=== PATIENT | male | born 1970 | race American Indian/Alaskan Native ===

== ENCOUNTER 2017-01-30 07:15 | Inpatient (IN) | payer OTHER ==
--- NOTE | 2017-01-30 08:04 | Emergency Department Report ---
ED General Adult HPI - General Chief complaint: Dyspnea/Respdistress Stated complaint: SOB Time Seen by Provider: 01/30/17 08:01 Source: patient Mode of arrival: Ambulatory Limitations: No Limitations - History of Present Illness Initial comments: The patient reports going to [place] for evaluation of his dyspnea prior. He states that he was told about the Inspire device for sleep apnea. He is not currently on home C Pap. He states he wakes up multiple times at night. He is here for evaluation of shortness of breath which she states is exertional, paroxysmal at night and associated with orthopnea. Over the last day he has noted some swelling in his legs. He was also told by Nitin that his blood pressure was elevated. However, he is not yet on antihypertensive medication. -: Gradual, days(s) (leg edema days other symptoms longer in duration), week(s) , month(s) Consistency: intermittent Improves with: none Worsens with: none Associated Symptoms: cough (sometimes white states sometimes brown), shortness of breath. denies: chest pain - Related Data Home Medications Medication Instructions Recorded Confirmed Last Taken No Known Home Medications [No 01/30/17 01/30/17 Unknown Reported Home Medications] Allergies Allergy/AdvReac Type Severity Reaction Status Date / Time No Known Allergies Allergy Unverified 03/12/14 11:53 ED Review of Systems ROS: Stated complaint: SOB Other details as noted in HPI Constitutional: denies: chills, fever Eyes: denies: eye pain, eye discharge, vision change ENT: denies: ear pain, throat pain Respiratory: see HPI, cough, orthopnea, shortness of breath, SOB with exertion. denies: wheezing Cardiovascular: denies: chest pain, palpitations Endocrine: no symptoms reported Gastrointestinal: denies: abdominal pain, nausea, diarrhea Genitourinary: denies: urgency, dysuria Musculoskeletal: denies: back pain, joint swelling, arthralgia Skin: denies: rash, lesions Neurological: denies: headache, weakness, paresthesias Psychiatric: denies: anxiety, depression Hematological/Lymphatic: denies: easy bleeding, easy bruising ED Past Medical Hx - Past Medical History Previous Medical History?: No - Surgical History Past Surgical History?: No - Social History Smoking Status: Never Smoker Substance Use Type: None - Medications Home Medications: Home Medications Medication Instructions Recorded Confirmed Last Taken Type No Known Home Medications [No 01/30/17 01/30/17 Unknown History Reported Home Medications] ED Physical Exam - General Limitations: No Limitations General appearance: alert, in no apparent distress, obese - Head Head exam: Present: atraumatic, normocephalic, other (large posterior neck/Dalrin- occipital adipose collection) - Eye Eye exam: Present: normal appearance, PERRL, EOMI. Absent: scleral icterus - ENT ENT exam: Present: mucous membranes moist - Neck Neck exam: Present: normal inspection - Respiratory Respiratory exam: Present: normal lung sounds bilaterally. Absent: respiratory distress - Cardiovascular Cardiovascular Exam: Present: regular rate, normal rhythm. Absent: systolic murmur, diastolic murmur, rubs, gallop - GI/Abdominal GI/Abdominal exam: Present: soft, normal bowel sounds. Absent: distended, tenderness, guarding, rebound, rigid - Rectal Rectal exam: Present: deferred - Extremities Exam Extremities exam: Present: other (1+ pretibial edema). Absent: pedal edema, joint swelling, calf tenderness - Back Exam Back exam: Present: normal inspection - Neurological Exam Neurological exam: Present: alert, oriented X3, CN II-XII intact. Absent: motor sensory deficit - Psychiatric Psychiatric exam: Present: normal affect, normal mood - Skin Skin exam: Present: warm, dry, intact, normal color. Absent: rash ED Course Vital Signs 01/30/17 01/30/17 01/30/17 07:39 07:55 08:00 Temperature 99.1 F Pulse Rate 78 Respiratory 24 Rate Blood Pressure 162/99 176/102 167/92 O2 Sat by Pulse 91 93 86 Oximetry 01/30/17 01/30/17 01/30/17 08:11 08:21 08:31 Temperature Pulse Rate 78 Respiratory 14 Rate Blood Pressure 167/92 167/92 167/92 O2 Sat by Pulse 93 99 98 Oximetry 01/30/17 01/30/17 01/30/17 08:41 08:51 09:01 Temperature Pulse Rate 78 68 73 Respiratory 14 14 17 Rate Blood Pressure 167/92 167/92 159/97 O2 Sat by Pulse 97 97 97 Oximetry 01/30/17 09:07 Temperature Pulse Rate 73 Respiratory Rate Blood Pressure 176/102 O2 Sat by Pulse Oximetry - Reevaluation(s) Reevaluation #1: The patient became somnolent in the emergency department intermittently. Therefore we placed him on BiPAP. He was admitted by Dr. Vuong to the hospitalist service. 01/30/17 09:34 ED Medical Decision Making - Lab Data Result diagrams: 01/30/17 07:52 01/30/17 07:52 Laboratory Results - last 24 hr 01/30/17 01/30/17 01/30/17 07:52 07:52 07:52 WBC 8.5 RBC 4.38 Hgb 12.1 Hct 37.7 MCV 86 MCH 28 MCHC 32 RDW 17.5 H Plt Count 127 L Lymph % (Auto) 28.6 [place] % (Auto) 12.0 H Eos % (Auto) 1.9 Baso % (Auto) 0.4 Lymph # 2.4 [place] # 1.0 H Eos # 0.2 Baso # 0.0 Seg Neutrophils % 57.1 Seg Neutrophils # 4.8 PT INR APTT POC ABG pH POC ABG pCO2 POC ABG pO2 POC ABG HCO3 POC ABG Total CO2 POC ABG O2 Sat POC ABG Base Excess FiO2 Sodium 139 Potassium 4.3 Chloride 97.0 L Carbon Dioxide 30 Anion Gap 16 BUN 11 Creatinine 1.2 Estimated GFR > 60 BUN/Creatinine Ratio 9.16 Glucose 174 H Calcium 9.2 CK-MB (CK-2) 14.6 H Troponin T < 0.010 NT-Pro-B Natriuret Pep 23.29 01/30/17 01/30/17 08:13 08:20 WBC RBC Hgb Hct MCV MCH MCHC RDW Plt Count Lymph % (Auto) [place] % (Auto) Eos % (Auto) Baso % (Auto) Lymph # [place] # Eos # Baso # Seg Neutrophils % Seg Neutrophils # PT 13.6 INR 1.05 APTT 35.4 POC ABG pH 7.397 POC ABG pCO2 56.8 H POC ABG pO2 63 L POC ABG HCO3 35.0 POC ABG Total CO2 37 POC ABG O2 Sat 91 POC ABG Base Excess 10 FiO2 21 Sodium Potassium Chloride Carbon Dioxide Anion Gap BUN Creatinine Estimated GFR BUN/Creatinine Ratio Glucose Calcium CK-MB (CK-2) Troponin T NT-Pro-B Natriuret Pep - EKG Data -: EKG Interpreted by Tx EKG shows normal: sinus rhythm (first-degree AV block) Rate: normal - EKG Data Interpretation: no acute changes - Radiology Data interpreted by me: Chest x-ray no acute process Critical Care Time: Yes Critical care time in (mins) excluding proc time.: 40 Critical care attestation.: If time is entered above; I have spent that time in minutes in the direct care of this critically ill patient, excluding procedure time. ED Disposition Clinical Impression: Obstructive sleep apnea, Hypercapnia, First degree AV block Hypertension Qualifiers: Hypertension type: essential hypertension Qualified Code(s): I10 - Essential ( primary) hypertension Type 2 diabetes mellitus Qualifiers: Diabetes mellitus complication status: without complication Diabetes mellitus senior living insulin use: without senior living use Qualified Code(s): E11.9 - Type 2 diabetes mellitus without complications Hypercapnic respiratory failure Qualifiers: Chronicity: chronic Qualified Code(s): J96.12 - Chronic respiratory failure with hypercapnia Disposition: OP ADMITTED IP TO THIS HOSP Is pt being admited?: Yes Does the pt Need Aspirin: Yes Condition: Stable Instructions: Diabetes Mellitus Type 2 in Adults (ED), Hypertension (ED) Referrals: PRIMARY CARE, [Primary Care Provider] - 3-5 Days Time of Disposition: 09:35
[2017-01-30 08:19] LABS: Basophils % (Auto) 0.4 % (0.0-1.8); Eosinophils % (Auto) 1.9 % (0.0-4.3); Hematocrit 37.7 % (35.5-45.6); Hemoglobin 12.1 gm/dl (11.8-15.2); Mean Corpuscular HGB Conc 32 % (32-34); Mean Corpuscular Hemoglobin 28 pg (28-32); Mean Corpuscular Volume 86 fl (84-94); Platelet Count 127 K/mm3 (140-440); Red Blood Count 4.38 M/mm3 (3.65-5.03); Red Cell Distribution Width 17.5 % (13.2-15.2); White Blood Count 8.5 K/mm3 (4.5-11.0)
[2017-01-30 08:22] LABS: Anion Gap 16 mmol/L; BUN/Creatinine Ratio 9.16; Blood Urea Nitrogen 11 mg/dL (9-20); Calcium 9.2 mg/dL (8.4-10.2); Carbon Dioxide 30 mmol/L (22-30); Glucose 174 mg/dL (75-100); Potassium 4.3 mmol/L (3.6-5.0); Sodium 139 mmol/L (137-145)
[2017-01-30 08:32] LABS: ISTAT Base Excess 10; ISTAT DEVICE 0; ISTAT PCO2 56.8 (35-45); ISTAT PH 7.397 (7.35-7.45); ISTAT PO2 63 (80-105); ISTAT SO2 91; ISTAT TCO2 37
[2017-01-30 08:37] LABS: INR 1.05 (0.87-1.13)
[2017-01-30 08:38] LABS: Partial Thromboplastin Time 35.4 Sec. (24.2-36.6)
[2017-01-30] MEDS ORDERED: NITRO-BID 2% TP ONE (08:39)
[2017-01-30 08:44] LABS: Creatine Kinase MB 14.6 ng/mL (0.0-4.0)
[2017-01-30 08:46] LABS: Alanine Aminotransferase 62 units/L (7-56); Albumin 4.1 g/dL (3.9-5); Albumin/Globulin Ratio 0.9 %; Alkaline Phosphatase 90 units/L (35-129); Bilirubin,Total 0.3 mg/dL (0.1-1.2); Magnesium 2.1 mg/dL (1.7-2.3); Total Protein 8.8 g/dL (6.3-8.2)
[2017-01-30 08:47] LABS: Bilirubin,Direct < 0.2 mg/dL (0-0.2)
[2017-01-30 08:59] LABS: Creatine Kinase 3072 units/L (55-170)
[2017-01-30] MEDS ORDERED: NACL 0.9% 1000 ML 1,000 ML IV ONE ×2 (09:20→16:31)
--- NOTE | 2017-01-30 09:32 | XRay Report ---
AP CHEST :01/30/17 07:15:00 CLINICAL: Shortness of breath. COMPARISON:03/29/11 FINDINGS: Borderline cardiomegaly and mild central vascular congestion. No airspace disease or pleural effusion. No tubes or lines. The bones and soft tissues are normal. IMPRESSION: Cardiomegaly and pulmonary venous hypertension. No pulmonary edema.
[2017-01-30] MEDS ORDERED: BABY ASPIRIN PO ONE (09:35)
[2017-01-30 09:46] LABS: Urine Drugs of Abuse Note Disclamer
[2017-01-30] MEDS ORDERED: LOVENOX SUB-Q SCH (10:00)
[2017-01-30 10:07] LABS: Bilirubin,Urine NEG (Negative); Blood,Urine NEG (Negative); Ketones,Urine NEG (Negative); Leukocyte Esterase,Urine NEG (Negative); Mucus,Urine FEW /HPF; Nitrite,Urine NEG (Negative); Urobilinogen,Urine < 2.0 mg/dL (<2.0)
[2017-01-30 10:40] LABS: ISTAT Base Excess 10; ISTAT HCO3 34.9; ISTAT PCO2 59.7 (35-45); ISTAT PH 7.375 (7.35-7.45); ISTAT PO2 67 (80-105); ISTAT SO2 92; ISTAT TCO2 37
--- NOTE | 2017-01-30 11:42 | Admit Criteria Form ---
Admission Criteria Documentation: RESPIRATORY FAILURE GRG Clinical Indications for Admission to Inpatient Care (Place 'X' for any and all applicable criteria): Hospital admission is needed for appropriate care of the patient because of acute respiratory failure or insufficiency as indicated by ANY ONE of the following(1)(2)(3)(4)(5)(6)(7)(8): [ X]I. Mechanical ventilation needed (acute invasive or noninvasive) [ ]II. Severe ventilation deficit as indicated by ANY ONE of the following (9) [ ]a) Respiratory acidosis (pH less than 7.32 and partial pressure of carbon dioxide greater than 40 mm Hg (5.3 kPa)) [ ]b) Partial pressure of carbon dioxide greater than 44 mm Hg (5.9 kPa ) (new) [ ]c) Airflow measurements less than 25% of predicted (eg, peak expiratory flow rate less than 100 L/minute) [ ]d) Forced vital capacity less than 15 mL/kg of ideal body weight, or 50% decrease in vital capacity from baseline [ ]III. Noncardiac pulmonary edema not resolving with rapid emergency treatment (8) [ ]IV. Severe respiratory distress as indicated by ANY ONE of the following: [ ]a) Severe tachypnea (respiratory rate greater than 30, greater than 45 for 6-month-old, greater than 60 for ) [ ]b) Severe hypoxemia (partial pressure of oxygen less than 50 mm Hg ( 6.7 kPa) on greater than 50% oxygen or partial pressure of oxygen to FIO2 ratio less than 200) [ ]c) Mental status deterioration from respiratory disease [ ]V. Airway obstruction or inadequate protection [A](10)(11) The original [employer] content created by [employer] has been revised. The portions of the content which have been revised are identified through the use of italic text or in bold, and [employer] has neither reviewed nor approved the modified material. All other unmodified content is copyright [employer]. Please see references footnoted in the original [employer] edition 2016 Admission Criteria Met: Yes
[2017-01-30] MEDS ORDERED: LOVENOX SUB-Q ONE (12:33)
[2017-01-30] MEDS: LOVENOX SUB-Q SCH (12:44)
[2017-01-30] MEDS ORDERED: DUONEB 0.5 MG-3 MG/3 ML SOLN IH PRN (14:20)
[2017-01-30] MEDS ORDERED: DILAUDID IV PRN (14:25)
[2017-01-30] MEDS ORDERED: ZOFRAN IV PRN (14:25)
--- NOTE | 2017-01-30 14:26 | History and Physical Report ---
History of Present Illness Date of examination: 01/30/17 Date of admission: 01/30/17 09:36 Chief complaint: Sob and frequent sleeping spells. History of present illness: Falling asleep frequently.Has to stop his car freqently to take naps and then drive. The patient reports going to [place] for evaluation of his dyspnea before. He is not currently on home C Pap. He states he wakes up multiple times at night. He is here for evaluation of shortness of breath which she states is exertional, paroxysmal at night and associated with orthopnea. Over the last day he has noted some swelling in his legs. He was also told by Nitin that his blood pressure was elevated. However, he is not yet on antihypertensive medication. Morbidly obese. -: Gradual, days(s) (leg edema days other symptoms longer in duration), week(s) , month(s) Consistency: intermittent Improves with: none Worsens with: none Associated Symptoms: cough (sometimes white states sometimes brown), shortness of breath. denies: chest pain Past History Past Medical History: hypertension, other (Morbidly Obese) Past Surgical History: No surgical history Social history: lives with family, full code Family history: hypertension Medications and Allergies Allergies Allergy/AdvReac Type Severity Reaction Status Date / Time No Known Allergies Allergy Unverified 03/12/14 11:53 Home Medications Medication Instructions Recorded Confirmed Last Taken Type No Known Home Medications [No 01/30/17 01/30/17 Unknown History Reported Home Medications] Active Meds: Active Medications Enoxaparin Sodium (Lovenox) 40 mg SUB-Q QDAY@1000 JO ANN Last Admin: 01/30/17 12:44 Dose: 40 mg Review of Systems All systems: negative Constitutional: no weight loss, no weight gain Ears, nose, mouth and throat: no ear pain, no ear discharge, no tinnitis, no decreased hearing, no nose pain, no nasal congestion, no nasal discharge, no sinus pressure, no sinus pain Cardiovascular: orthopnea, shortness of breath, dyspnea on exertion, high blood pressure, no chest pain Respiratory: shortness of breath, dyspnea on exertion, no cough, no cough with sputum, no excessive sputum, no hemoptysis, no congestion, no wheezing, no pleurisy, no pain, no pain on inspiration, no snoring Gastrointestinal: no nausea, no vomiting, no diarrhea, no constipation, no change in bowel habits, no hematemesis, no coffee ground emesis Genitourinary Male: no hematuria, no flank pain, no discharge, no urinary frequency, no urinary hesitancy, no nocturia, no incontinence, no erectile dysfunction, no genital pain Musculoskeletal: no neck stiffness, no neck pain, no shooting arm pain, no arm numbness/tingling, no low back pain, no shooting leg pain, no leg numbness/ tingling, no redness of joints Integumentary: no rash, no pruritis, no redness, no sores, no wounds, no jaundice, no boils, no blisters Neurological: no head injury, no transient paralysis, no paralysis, no weakness , no parathesias, no numbness, no tingling, no seizures, no syncope, no tremors , no ataxia, no lack of coordination Psychiatric: no anxiety, no depression Endocrine: no cold intolerance, no heat intolerance, no polyphagia, no excessive thirst, no polydipsia, no polyuria, no nocturia, no excessive sweating , no flushing, no weight change Hematologic/Lymphatic: no easy bruising, no easy bleeding Allergic/Immunologic: no urticaria, no allergic rhinitis, no wheezing Exam - Physical Exam Narrative exam: Morbidly obese - Constitutional Vitals: Temp Pulse Resp BP Pulse Ox 98.6 F 83 79 H 152/99 97 01/30/17 13:42 01/30/17 12:51 01/30/17 13:42 01/30/17 13:42 01/30/17 13:58 General appearance: Present: mild distress, well-nourished - EENT Eyes: Present: PERRL ENT: hearing intact, clear oral mucosa - Neck Neck: Present: supple, normal ROM - Respiratory Respiratory effort: normal Respiratory: bilateral: diminished, wheezing - Cardiovascular Heart rate: 70 Rhythm: regular Heart Sounds: Present: S1 & S2. Absent: rub, click - Extremities Extremities: pulses symmetrical, No edema Extremity abnormal: edema Peripheral Pulses: within normal limits - Abdominal General gastrointestinal: Present: soft, non-tender, non-distended, normal bowel sounds Male genitourinary: Present: normal - Integumentary Integumentary: Present: clear, warm, dry - Musculoskeletal Musculoskeletal: gait normal, strength equal bilaterally - Psychiatric Psychiatric: appropriate mood/affect, intact judgment & insight - Neurologic Neurologic: CNII-XII intact, moves all extremities - Allied Health Allied health notes reviewed: nursing, case management Results - Labs CBC & Chem 7: 01/30/17 07:52 01/30/17 07:52 Labs: Laboratory Last Values WBC 8.5 K/mm3 (4.5-11.0) 01/30/17 07:52 RBC 4.38 M/mm3 (3.65-5.03) 01/30/17 07:52 Hgb 12.1 gm/dl (11.8-15.2) 01/30/17 07:52 Hct 37.7 % (35.5-45.6) 01/30/17 07:52 MCV 86 fl (84-94) 01/30/17 07:52 MCH 28 pg (28-32) 01/30/17 07:52 MCHC 32 % (32-34) 01/30/17 07:52 RDW 17.5 % (13.2-15.2) H 01/30/17 07:52 Plt Count 127 K/mm3 (140-440) L 01/30/17 07:52 Lymph % (Auto) 28.6 % (13.4-35.0) 01/30/17 07:52 [place] % (Auto) 12.0 % (0.0-7.3) H 01/30/17 07:52 Eos % (Auto) 1.9 % (0.0-4.3) 01/30/17 07:52 Baso % (Auto) 0.4 % (0.0-1.8) 01/30/17 07:52 Lymph # 2.4 K/mm3 (1.2-5.4) 01/30/17 07:52 [place] # 1.0 K/mm3 (0.0-0.8) H 01/30/17 07:52 Eos # 0.2 K/mm3 (0.0-0.4) 01/30/17 07:52 Baso # 0.0 K/mm3 (0.0-0.1) 01/30/17 07:52 Seg Neutrophils % 57.1 % (40.0-70.0) 01/30/17 07:52 Seg Neutrophils # 4.8 K/mm3 (1.8-7.7) 01/30/17 07:52 PT 13.6 Sec. (12.2-14.9) 01/30/17 08:13 INR 1.05 (0.87-1.13) 01/30/17 08:13 APTT 35.4 Sec. (24.2-36.6) 01/30/17 08:13 POC ABG pH 7.375 (7.35-7.45) 01/30/17 10:33 POC ABG pCO2 59.7 (35-45) H 01/30/17 10:33 POC ABG pO2 67 (80-105) L 01/30/17 10:33 POC ABG HCO3 34.9 01/30/17 10:33 POC ABG Total CO2 37 01/30/17 10:33 POC ABG O2 Sat 92 01/30/17 10:33 POC ABG Base Excess 10 01/30/17 10:33 FiO2 24 % 01/30/17 10:33 Sodium 139 mmol/L (137-145) 01/30/17 07:52 Potassium 4.3 mmol/L (3.6-5.0) 01/30/17 07:52 Chloride 97.0 mmol/L (98-107) L 01/30/17 07:52 Carbon Dioxide 30 mmol/L (22-30) 01/30/17 07:52 Anion Gap 16 mmol/L 01/30/17 07:52 BUN 11 mg/dL (9-20) 01/30/17 07:52 Creatinine 1.2 mg/dL (0.8-1.5) 01/30/17 07:52 Estimated GFR > 60 ml/min 01/30/17 07:52 BUN/Creatinine Ratio 9.16 % 01/30/17 07:52 Glucose 174 mg/dL (75-100) H 01/30/17 07:52 Calcium 9.2 mg/dL (8.4-10.2) 01/30/17 07:52 Magnesium 2.1 mg/dL (1.7-2.3) 01/30/17 07:52 Total Bilirubin 0.3 mg/dL (0.1-1.2) 01/30/17 07:52 Direct Bilirubin < 0.2 mg/dL (0-0.2) 01/30/17 07:52 AST 105 units/L (5-40) H 01/30/17 07:52 ALT 62 units/L (7-56) H 01/30/17 07:52 Alkaline Phosphatase 90 units/L (35-129) 01/30/17 07:52 Total Creatine Kinase 3072 units/L (55-170) H 01/30/17 07:52 CK-MB (CK-2) 14.6 ng/mL (0.0-4.0) H 01/30/17 07:52 CK-MB (CK-2) Rel Index 0.4 (0-4) 01/30/17 07:52 Troponin T < 0.010 ng/mL (0.00-0.029) 01/30/17 07:52 NT-Pro-B Natriuret Pep 23.29 pg/mL (0-450) 01/30/17 07:52 Total Protein 8.8 g/dL (6.3-8.2) H 01/30/17 07:52 Albumin 4.1 g/dL (3.9-5) 01/30/17 07:52 Albumin/Globulin Ratio 0.9 % 01/30/17 07:52 Urine Color Yellow (Yellow) 01/30/17 09:35 Urine Turbidity Clear (Clear) 01/30/17 09:35 Urine pH 6.0 (5.0-7.0) 01/30/17 09:35 Ur Specific [place] 1.017 (1.003-1.030) 01/30/17 09:35 Urine Protein 100 mg/dl mg/dL (Negative) 01/30/17 09:35 Urine Glucose (UA) Neg mg/dL (Negative) 01/30/17 09:35 Urine Ketones Neg mg/dL (Negative) 01/30/17 09:35 Urine Blood Neg (Negative) 01/30/17 09:35 Urine Nitrite Neg (Negative) 01/30/17 09:35 Urine Bilirubin Neg (Negative) 01/30/17 09:35 Urine Urobilinogen < 2.0 mg/dL (<2.0) 01/30/17 09:35 Ur Leukocyte Esterase Neg (Negative) 01/30/17 09:35 Urine WBC (Auto) 1.0 /HPF (0.0-6.0) 01/30/17 09:35 Urine RBC (Auto) 3.0 /HPF (0.0-6.0) 01/30/17 09:35 Urine Mucus Few /HPF 01/30/17 09:35 Urine Opiates Screen Presumptive negative 01/30/17 09:35 Urine Methadone Screen Presumptive negative 01/30/17 09:35 Ur Barbiturates Screen Presumptive negative 01/30/17 09:35 Ur Phencyclidine Scrn Presumptive negative 01/30/17 09:35 Ur Amphetamines Screen Presumptive negative 01/30/17 09:35 U Benzodiazepines Scrn Presumptive negative 01/30/17 09:35 Urine Cocaine Screen Presumptive negative 01/30/17 09:35 U Marijuana (THC) Screen Presumptive negative 01/30/17 09:35 Drugs of Abuse Note Disclamer 01/30/17 09:35 - Imaging and Cardiology EKG: report reviewed Chest x-ray: report reviewed Assessment and Plan Advance Directives: Yes (Full code) VTE prophylaxis?: Chemical Plan of care discussed with patient/family: Yes - Patient Problems (1) Hypercapnic respiratory failure Current Visit: Yes Status: Acute Qualifiers: Chronicity: chronic Qualified Code(s): J96.12 - Chronic respiratory failure with hypercapnia Plan to address problem: Bipap +Duonebs May have to arrange for Home CPAP/Bipap (2) Obstructive sleep apnea Current Visit: Yes Status: Chronic Plan to address problem: Needs CPAP (3) Hypertension Current Visit: Yes Status: Chronic Qualifiers: Hypertension type: essential hypertension Qualified Code(s): I10 - Essential (primary) hypertension Plan to address problem: Started on losartan/HCTZ 100/25 (4) Type 2 diabetes mellitus Current Visit: Yes Status: Chronic Qualifiers: Diabetes mellitus complication status: without complication Diabetes mellitus complication detail: D Diabetic retinopathy severity: D Proliferative retinopathy type: P Diabetes mellitus macular edema: D Diabetes mellitus prison insulin 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
[2017-01-30] MEDS: DUONEB 0.5 MG-3 MG/3 ML SOLN IH SCH ×2 (15:30→21:13)
[2017-01-30] MEDS ORDERED: LASIX IV ONE (16:27)
--- NOTE | 2017-01-30 17:07 | Event Note ---
Date: 01/30/17 Dr Martinez consulted .For ICU admission. Will manage on floor
[2017-01-30] MEDS: NOVOLOG SUB-Q SCH (18:59)
[2017-01-31] MEDS: NOVOLOG SUB-Q SCH ×5 (00:10→22:08)
[2017-01-31] MEDS: DUONEB 0.5 MG-3 MG/3 ML SOLN IH SCH ×4 (02:12→21:22)
[2017-01-31] MEDS ORDERED: TYLENOL PO PRN (09:00)
--- NOTE | 2017-01-31 09:42 | Progress Note ---
Subjective Date of service: 01/31/17 Principal diagnosis: she has shortness of breath and on BiPAP Interval history: Complaint of headache on laying down and shortness of breath. Still on BiPAP. Objective - Constitutional Vitals: Vital Signs - 12hr 01/30/17 01/30/17 01/31/17 22:00 23:01 00:38 Temperature 98.4 F Pulse Rate [ Anterior Bilateral Throughout] Pulse Rate [ Posterior Bilateral Throughout] Pulse Rate [ 74 Right From Monitor] Respiratory 20 20 20 Rate Respiratory Rate [Anterior Bilateral Throughout] Respiratory Rate [Posterior Bilateral Throughout] Blood Pressure 130/90 [Left Arm] O2 Sat by Pulse 98 95 99 Oximetry 01/31/17 01/31/17 01/31/17 02:13 02:16 02:22 Temperature Pulse Rate [ 69 73 Anterior Bilateral Throughout] Pulse Rate [ Posterior Bilateral Throughout] Pulse Rate [ Right From Monitor] Respiratory 13 Rate Respiratory 18 17 Rate [Anterior Bilateral Throughout] Respiratory Rate [Posterior Bilateral Throughout] Blood Pressure [Left Arm] O2 Sat by Pulse 96 Oximetry 01/31/17 01/31/17 01/31/17 04:35 08:24 08:58 Temperature 97.3 F L Pulse Rate [ 80 Anterior Bilateral Throughout] Pulse Rate [ 80 Posterior Bilateral Throughout] Pulse Rate [ 76 80 Right From Monitor] Respiratory 20 22 Rate Respiratory 17 Rate [Anterior Bilateral Throughout] Respiratory 17 Rate [Posterior Bilateral Throughout] Blood Pressure 156/108 141/79 [Left Arm] O2 Sat by Pulse 99 Oximetry 01/31/17 09:12 Temperature Pulse Rate [ 81 Anterior Bilateral Throughout] Pulse Rate [ 81 Posterior Bilateral Throughout] Pulse Rate [ Right From Monitor] Respiratory Rate Respiratory 20 Rate [Anterior Bilateral Throughout] Respiratory 20 Rate [Posterior Bilateral Throughout] Blood Pressure [Left Arm] O2 Sat by Pulse Oximetry - Labs CBC & Chem 7: 01/30/17 07:52 01/30/17 07:52 Labs: Abnormal lab results 01/30/17 01/30/17 01/30/17 Range/Units 10:33 18:25 22:54 POC ABG pCO2 59.7 H (35-45) POC ABG pO2 67 L (80-105) POC Glucose 225 H 218 H (70-105) 01/31/17 Range/Units 05:11 POC ABG pCO2 (35-45) POC ABG pO2 (80-105) POC Glucose 215 H (70-105)
[2017-01-31] MEDS: LOVENOX SUB-Q SCH (10:30)
--- NOTE | 2017-01-31 13:34 | Consultation ---
History of Present Illness Consult date: 01/31/17 Reason for consult: dyspnea History of present illness: Called to evaluate case 45-year-old -Pak[place] male admitted to the hospital with history of progressive dyspnea, hypersomnolence easy fatigability and edema. The patient reports the symptoms have been noted for the past 6-12 months. He described progressive fatigue and shortness of breath on minimal exertion during the past month. This has all started with episodes of distress and breathing difficulty at nighttime, on which he wakes up gasping for air. No follow-up members available. Reportedly some snoring has impressive. Bilateral lower extremity swelling noted for the past month. No chest pain reported. No fever or chills. He denies past history of asthma, COPD. He denies past history of smoking. Described hypersomnolence characterized by excessive sleepiness during the day requiring him to take at least 1-2 naps everyday. Face away only when continuously working. Has some trouble driving also with no accidents. Denies using any sedatives or pain drugs. Past History Past Medical History: hypertension, other (Morbidly Obese) Past Surgical History: No surgical history Social history: lives with family, full code. denies: smoking, alcohol abuse Family history: hypertension Medications and Allergies Allergies Allergy/AdvReac Type Severity Reaction Status Date / Time No Known Allergies Allergy Unverified 03/12/14 11:53 Home Medications Medication Instructions Recorded Confirmed Last Taken Type No Known Home Medications [No 01/30/17 01/30/17 Unknown History Reported Home Medications] Active Meds: Active Medications Acetaminophen (Tylenol) 650 mg PO Q4H PRN PRN Reason: Pain, Mild (1-3) Last Admin: 01/31/17 10:29 Dose: 650 mg Albuterol/Ipratropium (Duoneb 0.5 Mg-3 Mg/3 Ml Soln) 1 ampul IH Q6HRT [facility] Last Admin: 01/31/17 08:58 Dose: 1 ampul Albuterol/Ipratropium (Duoneb 0.5 Mg-3 Mg/3 Ml Soln) 1 ampul IH Q3H PRN PRN Reason: Wheezing Enoxaparin Sodium (Lovenox) 40 mg SUB-Q QDAY@1000 JO ANN Last Admin: 01/31/17 10:30 Dose: 40 mg Hydromorphone HCl (Dilaudid) 1 mg IV Q3H PRN PRN Reason: Pain , Severe (7-10) Last Admin: 01/30/17 23:54 Dose: 1 mg Insulin Aspart (Novolog) 0 units SUB-Q ACHS JO ANN PRN Reason: Protocol Last Admin: 01/31/17 13:13 Dose: 2 units Ondansetron HCl (Zofran) 4 mg IV Q3H PRN PRN Reason: Nausea And Vomiting Review of Systems Constitutional: weight gain, fatigue, no fever, no chills, no sweats Cardiovascular: orthopnea, palpitations, edema, shortness of breath, dyspnea on exertion, no lightheadedness, no paroxysmal nocturnal dyspnea Respiratory: shortness of breath, dyspnea on exertion, wheezing, sleep apnea ( denies prior history, never evaluated), no cough, no cough with sputum, no excessive sputum, no hemoptysis, no congestion Physical Examination Vital signs: Vital Signs Temp Pulse Resp BP Pulse Ox 99.1 F 78 24 162/99 91 01/30/17 07:39 01/30/17 07:39 01/30/17 07:39 01/30/17 07:39 01/30/17 07:39 General appearance: no acute distress, other (alert sitting up morbidly obese) Eyes: non-icteric ENT: oropharynx moist, other (Mallampati class IV) Neck: no JVD, other (large neck difficult to evaluate) Ascultation: Bilateral: diminished breath sounds Cardiovascular: regular rate and rhythm Gastrointestinal: normoactive bowel sounds, absent bowel sounds, soft Integumentary: normal Extremities: no cyanosis, no edema Musculoskeletal: no deformities normal mental status, non-focal exam, pupils equal and round, CN II-XII normal, motor strength normal and Results - Laboratory Findings CBC and BMP: 01/30/17 07:52 01/30/17 07:52 ABG POC ABG pH 7.375 (7.35-7.45) 01/30/17 10:33 POC ABG pCO2 59.7 (35-45) H 01/30/17 10:33 POC ABG pO2 67 (80-105) L 01/30/17 10:33 POC ABG HCO3 34.9 01/30/17 10:33 POC ABG Total CO2 37 01/30/17 10:33 POC ABG O2 Sat 92 01/30/17 10:33 PT/INR, D-dimer PT 13.6 Sec. (12.2-14.9) 01/30/17 08:13 INR 1.05 (0.87-1.13) 01/30/17 08:13 Abnormal lab findings: Abnormal Labs 01/30/17 01/30/17 01/30/17 10:33 18:25 22:54 POC ABG pCO2 59.7 H POC ABG pO2 67 L POC Glucose 225 H 218 H 01/31/17 05:11 POC ABG pCO2 POC ABG pO2 POC Glucose 215 H - Diagnostic Findings Chest x-ray: report reviewed Additional studies: ABGs with chronic hypercapnia noted Laboratory Tests 01/30/17 10:33 POC ABG pH 7.375 POC ABG pCO2 59.7 H POC ABG pO2 67 L POC ABG HCO3 34.9 POC ABG Total CO2 37 POC ABG O2 Sat 92 POC ABG Base Excess 10 FiO2 24 Assessment and Plan Dyspnea Possibly multifactorial but at this point consistent with obesity hypoventilation syndrome with acute decompensation in the context of underlying ARABELLA and plan hypertension Obesity hypoventilation syndrome with acute decompensation Edema. Secondary to pulmonary hypertension due to above factors ARABELLA with hypersomnolence. Not on treatment Morbid obesity Hypertension Recommendations Continue oxygen support goal is to maintain oximetry over 90% Avoid sedatives and narcotics I agree with empirical BiPAP at this point If acute bronchospasm noted, continue albuterol 2.5 mg nebulizations every 4-6 hours Ambulate on room air and monitor oximeter. Portable oxygen is noted with oximetries under 88-89% Need sleep study CARLOS after discharge is noted to set PAP therapy. This can be done at the office at the earliest opportunity after discharge Echocardiogram for pulmonary hypertension evaluation DVT prophylaxis Plan of care discussed with the patient and shelter case manager Thanks
[2017-01-31] MEDS ORDERED: GLUCOPHAGE XR PO SCH (20:17)
[2017-01-31] MEDS: COZAAR PO SCH (21:02)
[2017-01-31] MEDS: GLUCOPHAGE XR PO SCH (21:02)
[2017-01-31 22:34] LABS: Creatine Kinase MB 12.2 ng/mL (0.0-4.0)
[2017-01-31 22:36] LABS: Alanine Aminotransferase 64 units/L (7-56); Albumin 4.2 g/dL (3.9-5); Albumin/Globulin Ratio 0.9 %; Alkaline Phosphatase 87 units/L (35-129); Anion Gap 13 mmol/L; Bilirubin,Total 0.3 mg/dL (0.1-1.2); Blood Urea Nitrogen 9 mg/dL (9-20); Calcium 9.3 mg/dL (8.4-10.2); Carbon Dioxide 35 mmol/L (22-30); Chloride 94.3 mmol/L (98-107); Glucose 178 mg/dL (75-100); Potassium 4.3 mmol/L (3.6-5.0); Sodium 138 mmol/L (137-145); Total Protein 8.9 g/dL (6.3-8.2)
[2017-01-31 22:53] LABS: Creatine Kinase 2389 units/L (55-170)
[2017-02-01] MEDS: DUONEB 0.5 MG-3 MG/3 ML SOLN IH SCH ×5 (02:50→20:17)
--- NOTE | 2017-02-01 08:59 | Progress Note ---
Assessment and Plan Assessment and plan: Called to evaluate case 45-year-old -[place]ron[place] male admitted to the hospital with history of progressive dyspnea, hypersomnolence easy fatigability and edema. The patient reports the symptoms have been noted for the past 6-12 months. He described progressive fatigue and shortness of breath on minimal exertion during the past month. This has all started with episodes of distress and breathing difficulty at nighttime, on which he wakes up gasping for air. No follow-up members available. Reportedly some heavy snoring . Bilateral lower extremity swelling noted for the past month. . He denies past history of asthma, COPD. He denies past history of smoking, denies being on any meds at home Described hypersomnolence characterized by excessive sleepiness during the day requiring him to take at least 1-2 naps everyday. Face away only when continuously working. 1. Obesity Hypoventilation syndrome advised on weight loss, lifestyle modification -obtain PFTs 2. ARABELLA continue CPAP when sleeping Pulmonary has given him resource to set up outpatient sleep study 3. Accelerated HTN uncontrolled, optimize meds 4. Elevated CK/Rhabdomylysis denies statin use or trauma, it is also painless suspect Myopathy, even though etiology is unclear, Differentials include Endocrine and is a vs inflammatory obtain TSH, T4 and cortisol levels will need outpatient referral to a Recording Studio Intern for further workup as may need muscle biospy if it does not resolve May be related to uncontrolled Dm 5. T2Dm insulins 6. Pulmonary venous congestion continue lasix, obtain echo 7. Hypoxic respiratory failure home oxygen has been set up ( History Interval history: he states that he continues to have shortness of breath at times. But feels okay now, he also notes that he tends to have swelling in his legs frequently. He slightly swollen. His RN notes that he continues to desaturate every time he falls asleep. He denies any muscle aches, but admits to generalized weakness Hospitalist Physical - Physical exam Narrative exam: General: Patient appears well in no distress, obese HEENT: MMM, EOMI cardiac: S1-S2 heard lungs: No wheezing, mild bibasilar crackles abdomen: soft, nontender, nondistended bowel sounds positive extremities: 2 plus bipedal edema Skin: no rash or lesion Neuro: no focal deficit Psych: appropriate behavior and mood, cognition intact - Constitutional Vitals: Temp Pulse Resp BP Pulse Ox 98.2 F 85 22 127/78 98 02/01/17 08:00 02/01/17 08:00 02/01/17 08:00 02/01/17 08:00 02/01/17 08:00 General appearance: Present: mild distress, well-nourished Results - Labs CBC & Chem 7: 01/30/17 07:52 01/31/17 21:50 Labs: Laboratory Last Values WBC 8.5 K/mm3 (4.5-11.0) 01/30/17 07:52 RBC 4.38 M/mm3 (3.65-5.03) 01/30/17 07:52 Hgb 12.1 gm/dl (11.8-15.2) 01/30/17 07:52 Hct 37.7 % (35.5-45.6) 01/30/17 07:52 MCV 86 fl (84-94) 01/30/17 07:52 MCH 28 pg (28-32) 01/30/17 07:52 MCHC 32 % (32-34) 01/30/17 07:52 RDW 17.5 % (13.2-15.2) H 01/30/17 07:52 Plt Count 127 K/mm3 (140-440) L 01/30/17 07:52 Lymph % (Auto) 28.6 % (13.4-35.0) 01/30/17 07:52 Nolan % (Auto) 12.0 % (0.0-7.3) H 01/30/17 07:52 Eos % (Auto) 1.9 % (0.0-4.3) 01/30/17 07:52 Baso % (Auto) 0.4 % (0.0-1.8) 01/30/17 07:52 Lymph # 2.4 K/mm3 (1.2-5.4) 01/30/17 07:52 Nolan # 1.0 K/mm3 (0.0-0.8) H 01/30/17 07:52 Eos # 0.2 K/mm3 (0.0-0.4) 01/30/17 07:52 Baso # 0.0 K/mm3 (0.0-0.1) 01/30/17 07:52 Seg Neutrophils % 57.1 % (40.0-70.0) 01/30/17 07:52 Seg Neutrophils # 4.8 K/mm3 (1.8-7.7) 01/30/17 07:52 PT 13.6 Sec. (12.2-14.9) 01/30/17 08:13 INR 1.05 (0.87-1.13) 01/30/17 08:13 APTT 35.4 Sec. (24.2-36.6) 01/30/17 08:13 POC ABG pH 7.375 (7.35-7.45) 01/30/17 10:33 POC ABG pCO2 59.7 (35-45) H 01/30/17 10:33 POC ABG pO2 67 (80-105) L 01/30/17 10:33 POC ABG HCO3 34.9 01/30/17 10:33 POC ABG Total CO2 37 01/30/17 10:33 POC ABG O2 Sat 92 01/30/17 10:33 POC ABG Base Excess 10 01/30/17 10:33 FiO2 24 % 01/30/17 10:33 Sodium 138 mmol/L (137-145) 01/31/17 21:50 Potassium 4.3 mmol/L (3.6-5.0) 01/31/17 21:50 Chloride 94.3 mmol/L (98-107) L 01/31/17 21:50 Carbon Dioxide 35 mmol/L (22-30) H 01/31/17 21:50 Anion Gap 13 mmol/L 01/31/17 21:50 BUN 9 mg/dL (9-20) 01/31/17 21:50 Creatinine 1.0 mg/dL (0.8-1.5) 01/31/17 21:50 Estimated GFR > 60 ml/min 01/31/17 21:50 BUN/Creatinine Ratio 9.00 % 01/31/17 21:50 Glucose 178 mg/dL (75-100) H 01/31/17 21:50 POC Glucose 156 (70-105) H 02/01/17 05:56 Hemoglobin A1c 9.1 % (4-6) H 01/31/17 21:50 Calcium 9.3 mg/dL (8.4-10.2) 01/31/17 21:50 Magnesium 2.1 mg/dL (1.7-2.3) 01/30/17 07:52 Total Bilirubin 0.3 mg/dL (0.1-1.2) 01/31/17 21:50 Direct Bilirubin < 0.2 mg/dL (0-0.2) 01/30/17 07:52 AST 94 units/L (5-40) H 01/31/17 21:50 ALT 64 units/L (7-56) H 01/31/17 21:50 Alkaline Phosphatase 87 units/L (35-129) 01/31/17 21:50 Total Creatine Kinase 2389 units/L (55-170) H 01/31/17 21:50 CK-MB (CK-2) 12.2 ng/mL (0.0-4.0) H 01/31/17 21:50 CK-MB (CK-2) Rel Index 0.5 (0-4) 01/31/17 21:50 Troponin T < 0.010 ng/mL (0.00-0.029) 01/30/17 07:52 NT-Pro-B Natriuret Pep 23.29 pg/mL (0-450) 01/30/17 07:52 Total Protein 8.9 g/dL (6.3-8.2) H 01/31/17 21:50 Albumin 4.2 g/dL (3.9-5) 01/31/17 21:50 Albumin/Globulin Ratio 0.9 % 01/31/17 21:50 Urine Color Yellow (Yellow) 01/30/17 09:35 Urine Turbidity Clear (Clear) 01/30/17 09:35 Urine pH 6.0 (5.0-7.0) 01/30/17 09:35 Ur Specific Rogers 1.017 (1.003-1.030) 01/30/17 09:35 Urine Protein 100 mg/dl mg/dL (Negative) 01/30/17 09:35 Urine Glucose (UA) Neg mg/dL (Negative) 01/30/17 09:35 Urine Ketones Neg mg/dL (Negative) 01/30/17 09:35 Urine Blood Neg (Negative) 01/30/17 09:35 Urine Nitrite Neg (Negative) 01/30/17 09:35 Urine Bilirubin Neg (Negative) 01/30/17 09:35 Urine Urobilinogen < 2.0 mg/dL (<2.0) 01/30/17 09:35 Ur Leukocyte Esterase Neg (Negative) 01/30/17 09:35 Urine WBC (Auto) 1.0 /HPF (0.0-6.0) 01/30/17 09:35 Urine RBC (Auto) 3.0 /HPF (0.0-6.0) 01/30/17 09:35 Urine Mucus Few /HPF 01/30/17 09:35 Urine Opiates Screen Presumptive negative 01/30/17 09:35 Urine Methadone Screen Presumptive negative 01/30/17 09:35 Ur Barbiturates Screen Presumptive negative 01/30/17 09:35 Ur Phencyclidine Scrn Presumptive negative 01/30/17 09:35 Ur Amphetamines Screen Presumptive negative 01/30/17 09:35 U Benzodiazepines Scrn Presumptive negative 01/30/17 09:35 Urine Cocaine Screen Presumptive negative 01/30/17 09:35 U Marijuana (THC) Screen Presumptive negative 01/30/17 09:35 Drugs of Abuse Note Disclamer 01/30/17 09:35
[2017-02-01] MEDS: GLUCOPHAGE XR PO SCH ×2 (09:06→17:51)
[2017-02-01] MEDS: NOVOLOG SUB-Q SCH ×4 (09:06→23:40)
--- NOTE | 2017-02-01 09:16 | Discharge Summary ---
Providers - Providers Date of Admission: 01/30/17 09:36 Attending physician: TREVOR MOTA MD 01/30/17 16:23 Consult to Physician [CONS] Routine Consulting Provider: LESLEY ROJAS Reason For Exam: resp failure Place consult to:: DR. ROJAS Notified:: CRYSTAL BAZZI Phone number called:: [phone] Was contact made?: Yes If yes, spoke with:: ROGER Time called:: 16:13 Comment:: CASTILLO Primary care physician: PATIENT INSURANCE CLERK Hospitalization Condition: Stable Hospital course: 46-year-old man with a history of morbid obesity who presented to the hospital with progressive dyspnea, hypersomnolence, easy fatigability and edema. He notes that he had the symptoms for about 6-12 months, but had not seen a doctor for it. Upon arrival in the hospital he was noted to have hypoxia, which worsened while he was asleep. He received oxygen supplementation while awake, and CPAP while asleep. Patient likely has obstructive sleep apnea, and obesity hypoventilation syndrome. He was started on oxygen supplementation. He was seen by pulmonology and is planned for outpatient sleep study. He was also noted to have pulmonary venous congestion and bilateral pedal edema. He was treated with diuretics, echocardiogram was done which showed preserved systolic function. He was started on appropriate medications for hypertension and diabetes. He was also noted to have an asymptomatic rhabdomyolysis, this is most likely due to uncontrolled diabetes. Discharge diagnoses 1. Acute hypoxic respiratory failure 2. ARABELLA 3. Pulmonary venous congestion 4. Hypertension 5. Uncontrolled diabetes 6. Rhabdomyolysis Disposition: DISCHARGED TO HOME OR SELFCARE Time spent for discharge: 35 minutes Core Measure Documentation - Palliative Care Palliative Care/ Comfort Measures: Not Applicable - Core Measures Any of the following diagnoses?: none Exam - Constitutional Vitals: Temp Pulse Resp BP Pulse Ox 98.2 F 85 22 127/78 98 02/01/17 08:00 02/01/17 08:00 02/01/17 08:00 02/01/17 08:00 02/01/17 08:00 General appearance: Present: no acute distress, well-nourished - EENT Eyes: Present: PERRL ENT: hearing intact, clear oral mucosa - Neck Neck: Present: supple, normal ROM - Respiratory Respiratory effort: normal Respiratory: bilateral: CTA - Cardiovascular Heart Sounds: Present: S1 & S2. Absent: rub, click - Extremities Extremities: pulses symmetrical, No edema Peripheral Pulses: within normal limits - Abdominal General gastrointestinal: Present: soft, non-tender, non-distended, normal bowel sounds Male genitourinary: Present: normal - Integumentary Integumentary: Present: clear, warm, dry - Musculoskeletal Musculoskeletal: gait normal, strength equal bilaterally - Psychiatric Psychiatric: appropriate mood/affect, intact judgment & insight - Neurologic Neurologic: CNII-XII intact, moves all extremities Plan Follow up with: PRIMARY CARE,MD [Primary Care Provider] - 3-5 Days Prescriptions: ALBUTEROL Inhaler [Proair] 2 puff IH QID PRN #1 inhalation PRN Reason: Shortness Of Breath Furosemide [Lasix TAB] 40 mg PO QDAY #30 tablet glipiZIDE [Glucotrol] 5 mg PO BIDDIAB #60 tablet Losartan [Cozaar] 100 mg PO QDAY #30 tablet metFORMIN XR [Glucophage XR] 500 mg PO BIDDIAB #60 tablet Tiotropium Ruston [Spiriva Respimat] 4 gm IH DAILY #1 mist.inhal
[2017-02-01] MEDS ORDERED: ZITHROMAX 500 MG in NACL 0.9% 250ML 250 ML IV SCH (11:00)
[2017-02-01] MEDS: LASIX IV SCH (11:58)
[2017-02-01] MEDS: COZAAR PO SCH (11:59)
[2017-02-01] MEDS: LOVENOX SUB-Q SCH (11:59)
--- NOTE | 2017-02-01 13:16 | Progress Note ---
Assessment and Plan Dyspnea Possibly multifactorial but at this point consistent with obesity hypoventilation syndrome with acute decompensation in the context of underlying ARABELLA and plan hypertension. Improved Obesity hypoventilation syndrome with acute decompensation. Controlled Edema. Secondary to pulmonary hypertension due to above factors ARABELLA with hypersomnolence. Not on treatment Morbid obesity Hypertension Recommendations The patient are to check baseline oxygen needs. Portable oxygen is desaturation below 89% noted on room air I discussed with patient need for sleep testing. Appointment set for the patient to be seen as an outpatient once he is released from the hospital. Business card given Crusher Feeder evaluation in order to sign release weight loss diet prior to discharge Driving avoidance discussed pending sleep testing and treatment Plan of care discussed with the patient Thanks Subjective Date of service: 02/01/17 Principal diagnosis: shortness of breath ,OHS ARABELLA with exacerbation Interval history: Feels much better today. Expecting to go home soon. Slept much better with current BiPAP setting Objective Vital Signs - 12hr 02/01/17 02/01/17 02/01/17 02:50 03:00 04:55 Temperature 98.4 F Pulse Rate Pulse Rate [ 78 Left Radial] Pulse Rate [ 96 H 99 H Posterior Bilateral Throughout] Respiratory 18 Rate Respiratory 20 20 Rate [Posterior Bilateral Throughout] Blood Pressure Blood Pressure [Left Arm] Blood Pressure 126/60 [Right Arm] O2 Sat by Pulse 92 Oximetry 02/01/17 02/01/17 02/01/17 08:00 11:00 11:59 Temperature 98.2 F 98.9 F Pulse Rate 78 Pulse Rate [ 85 83 Left Radial] Pulse Rate [ Posterior Bilateral Throughout] Respiratory 22 20 Rate Respiratory Rate [Posterior Bilateral Throughout] Blood Pressure 127/78 Blood Pressure 127/78 119/76 [Left Arm] Blood Pressure [Right Arm] O2 Sat by Pulse 98 Oximetry Constitutional: no acute distress, other (alert sitting up morbidly obese) Eyes: non-icteric ENT: oropharynx moist, other (Mallampati class IV) Neck: no JVD, other (large neck difficult to evaluate) Ascultation: Bilateral: diminished breath sounds Cardiovascular: regular rate and rhythm Gastrointestinal: normoactive bowel sounds, absent bowel sounds, soft Integumentary: normal Extremities: no cyanosis, no edema Neurologic: normal mental status, non-focal exam, pupils equal and round, CN II- XII normal, motor strength normal and CBC and BMP: 01/30/17 07:52 01/31/17 21:50 ABG, PT/INR, D-dimer: ABG POC ABG pH 7.375 (7.35-7.45) 01/30/17 10:33 POC ABG pCO2 59.7 (35-45) H 01/30/17 10:33 POC ABG pO2 67 (80-105) L 01/30/17 10:33 POC ABG HCO3 34.9 01/30/17 10:33 POC ABG Total CO2 37 01/30/17 10:33 POC ABG O2 Sat 92 01/30/17 10:33 PT/INR, D-dimer PT 13.6 Sec. (12.2-14.9) 01/30/17 08:13 INR 1.05 (0.87-1.13) 01/30/17 08:13 Abnormal lab findings: Abnormal Labs 01/30/17 01/30/17 01/30/17 10:33 18:25 22:54 POC ABG pCO2 59.7 H POC ABG pO2 67 L Chloride Carbon Dioxide Glucose POC Glucose 225 H 218 H Hemoglobin A1c AST ALT Total Creatine Kinase CK-MB (CK-2) Total Protein 01/31/17 01/31/17 01/31/17 05:11 12:37 17:18 POC ABG pCO2 POC ABG pO2 Chloride Carbon Dioxide Glucose POC Glucose 215 H 170 H 162 H Hemoglobin A1c AST ALT Total Creatine Kinase CK-MB (CK-2) Total Protein 01/31/17 01/31/17 01/31/17 21:38 21:50 21:50 POC ABG pCO2 POC ABG pO2 Chloride 94.3 L Carbon Dioxide 35 H Glucose 178 H POC Glucose 193 H Hemoglobin A1c 9.1 H AST 94 H ALT 64 H Total Creatine Kinase 2389 H CK-MB (CK-2) 12.2 H Total Protein 8.9 H 02/01/17 02/01/17 05:56 11:42 POC ABG pCO2 POC ABG pO2 Chloride Carbon Dioxide Glucose POC Glucose 156 H 215 H Hemoglobin A1c AST ALT Total Creatine Kinase CK-MB (CK-2) Total Protein
[2017-02-01] MEDS: GLUCOTROL PO SCH (17:51)
[2017-02-01 21:52] LABS: Creatine Kinase MB 11.7 ng/mL (0.0-4.0)
[2017-02-02] MEDS: DUONEB 0.5 MG-3 MG/3 ML SOLN IH SCH ×3 (02:01→13:40)
[2017-02-02] MEDS: NOVOLOG SUB-Q SCH ×3 (09:38→13:45)
[2017-02-02] MEDS: LOVENOX SUB-Q SCH (09:40)
[2017-02-02] MEDS: COZAAR PO SCH (09:40)
[2017-02-02] MEDS: LASIX IV SCH (09:40)
[2017-02-02] MEDS: GLUCOTROL PO SCH (09:41)
[2017-02-02] MEDS: GLUCOPHAGE XR PO SCH (09:41)
--- NOTE | 2017-02-02 10:38 | Progress Note ---
Assessment and Plan Dyspnea. Improved Obesity hypoventilation syndrome with acute decompensation. Controlled Edema. Secondary to pulmonary hypertension due to above factors ARABELLA with hypersomnolence. Needs OPD Morbid obesity Hypertension Recommendations Portable oxygen if desaturation below 89% noted on room air OPD PSG after DH Distance Learning Administrator evaluation ,wt reduction diet Driving avoidance discussed pending sleep testing and treatment Can use Albuterol inhaler qid prn for chest congestion. Will update with PFT at the office Plan of care discussed with the patient Will sign off Subjective Date of service: 02/02/17 Principal diagnosis: shortness of breath ,OHS ARABELLA with exacerbation Interval history: Feels better today. Useed partially BiPAP last night.Still on [place] oxygen Objective Vital Signs - 12hr 02/02/17 02/02/17 02/02/17 00:00 02:01 02:11 Temperature 99.1 F Pulse Rate Pulse Rate [ 110 H Left Radial] Pulse Rate [ 78 80 Posterior Bilateral Throughout] Pulse Rate [ Right From Monitor] Respiratory 24 Rate Respiratory 18 18 Rate [Posterior Bilateral Throughout] Blood Pressure 118/70 [Left Arm] Blood Pressure [Right Arm] O2 Sat by Pulse 96 Oximetry 02/02/17 02/02/17 02/02/17 04:00 05:52 07:15 Temperature 98.9 F 98.2 F Pulse Rate 71 Pulse Rate [ 76 Left Radial] Pulse Rate [ Posterior Bilateral Throughout] Pulse Rate [ 74 Right From Monitor] Respiratory 20 20 Rate Respiratory Rate [Posterior Bilateral Throughout] Blood Pressure [Left Arm] Blood Pressure 121/72 131/83 [Right Arm] O2 Sat by Pulse 95 98 Oximetry 02/02/17 02/02/17 07:55 09:36 Temperature Pulse Rate Pulse Rate [ Left Radial] Pulse Rate [ 63 64 Posterior Bilateral Throughout] Pulse Rate [ Right From Monitor] Respiratory Rate Respiratory 20 20 Rate [Posterior Bilateral Throughout] Blood Pressure [Left Arm] Blood Pressure [Right Arm] O2 Sat by Pulse 99 Oximetry Constitutional: no acute distress, other (alert sitting up morbidly obese) Eyes: non-icteric ENT: oropharynx moist, other (Mallampati class IV) Neck: no JVD, other (large neck difficult to evaluate) Ascultation: Bilateral: diminished breath sounds, rhonchi (occasional) Cardiovascular: regular rate and rhythm Gastrointestinal: normoactive bowel sounds, absent bowel sounds, soft Integumentary: normal Extremities: no cyanosis, no edema Neurologic: normal mental status, non-focal exam, pupils equal and round, CN II- XII normal, motor strength normal and Psychiatric: mood appropriate CBC and BMP: 01/30/17 07:52 01/31/17 21:50 ABG, PT/INR, D-dimer: ABG POC ABG pH 7.375 (7.35-7.45) 01/30/17 10:33 POC ABG pCO2 59.7 (35-45) H 01/30/17 10:33 POC ABG pO2 67 (80-105) L 01/30/17 10:33 POC ABG HCO3 34.9 01/30/17 10:33 POC ABG Total CO2 37 01/30/17 10:33 POC ABG O2 Sat 92 01/30/17 10:33 PT/INR, D-dimer PT 13.6 Sec. (12.2-14.9) 01/30/17 08:13 INR 1.05 (0.87-1.13) 01/30/17 08:13 Abnormal lab findings: Abnormal Labs 01/30/17 01/30/17 01/30/17 10:33 18:25 22:54 POC ABG pCO2 59.7 H POC ABG pO2 67 L Chloride Carbon Dioxide Glucose POC Glucose 225 H 218 H Hemoglobin A1c AST ALT Total Creatine Kinase CK-MB (CK-2) Total Protein TSH Thyroxine (T4) 01/31/17 01/31/17 01/31/17 05:11 12:37 17:18 POC ABG pCO2 POC ABG pO2 Chloride Carbon Dioxide Glucose POC Glucose 215 H 170 H 162 H Hemoglobin A1c AST ALT Total Creatine Kinase CK-MB (CK-2) Total Protein TSH Thyroxine (T4) 01/31/17 01/31/17 01/31/17 21:38 21:50 21:50 POC ABG pCO2 POC ABG pO2 Chloride 94.3 L Carbon Dioxide 35 H Glucose 178 H POC Glucose 193 H Hemoglobin A1c 9.1 H AST 94 H ALT 64 H Total Creatine Kinase 2389 H CK-MB (CK-2) 12.2 H Total Protein 8.9 H TSH Thyroxine (T4) 02/01/17 02/01/17 02/01/17 05:56 11:42 15:52 POC ABG pCO2 POC ABG pO2 Chloride Carbon Dioxide Glucose POC Glucose 156 H 215 H Hemoglobin A1c AST ALT Total Creatine Kinase CK-MB (CK-2) Total Protein TSH Thyroxine (T4) 0.7 L 02/01/17 02/01/17 02/01/17 15:52 17:15 21:15 POC ABG pCO2 POC ABG pO2 Chloride Carbon Dioxide Glucose POC Glucose 255 H Hemoglobin A1c AST ALT Total Creatine Kinase 1879 H CK-MB (CK-2) 11.7 H Total Protein TSH 26.120 H Thyroxine (T4) 02/01/17 02/02/17 22:09 05:50 POC ABG pCO2 POC ABG pO2 Chloride Carbon Dioxide Glucose POC Glucose 297 H 112 H Hemoglobin A1c AST ALT Total Creatine Kinase CK-MB (CK-2) Total Protein TSH Thyroxine (T4)
[2017-02-02 17:20] VITALS: BP 111/71
== END 2017-02-02 17:00 | disposition home or self-care (01) | DRG 189 ==
LOC: ED 07:15 → 3A 09:36
PROVIDERS: ADMIT Internal Medicine; ATTEND Internal Medicine
PROC: 5A09357 Assistance with Respiratory Ventilation, Less than 24 Consecutive Hours, Continuous Positive Airway Pressure (ICD-10-PCS; principal; 2017-01-30)
DX: J96.21 Acute and chronic respiratory failure with hypoxia (principal); Z68.42 Body mass index [BMI] 45.0-49.9, adult; M62.82 Rhabdomyolysis; E66.2 Morbid (severe) obesity with alveolar hypoventilation; G47.33 Obstructive sleep apnea (adult) (pediatric); I10 Essential (primary) hypertension; I44.0 Atrioventricular block, first degree; Z82.49 Family history of ischemic heart disease and other diseases of the circulatory system; R09.89 Other specified symptoms and signs involving the circulatory and respiratory systems; Z99.81 Dependence on supplemental oxygen; J96.22 Acute and chronic respiratory failure with hypercapnia; E11.65 Type 2 diabetes mellitus with hyperglycemia; I27.2 Other secondary pulmonary hypertension
CPT/HCPCS: 36415; 36600; 71010; 80048; 80053; 80074; 80307; 81001; 82533; 82550; 82553; 82803; 82962; 83036; 83735; 83880; 84436; 84443; 84484; 85025; 85610; 85730; 93005; 93010; 93306; 94010; 94640; 94660; 94760; 96372; 99291; J0456; J1170; J1650; J1815; J1940; J2920; J7030; J7050

== ENCOUNTER 2019-10-12 14:43 | Emergency (ER) | payer SELFPAY ==
--- NOTE | 2019-10-12 19:44 | Emergency Department Report ---
ED General Adult HPI - General Chief complaint: Chest Pain Stated complaint: TEQUILA/CANT TASTE FOOD Time Seen by Provider: 10/12/19 19:40 Source: patient Mode of arrival: Ambulatory Limitations: No Limitations - History of Present Illness Initial comments: 49-year-old -[place] male presents to the emergency room for 8 month history of difficulty swallowing solid foods. Patient also reports that he can't taste food and has shortness of breath with walking laying down. Patient does admit that he is on oxygen 2 L at night. Patient does admit to difficulty sleeping. Patient never had a sleep study. Patient denies any pain. He is followed by [facility]. Onset/Timin -: month(s) Location: neck Severity scale (0 -10): 0 Consistency: constant Improves with: none Worsens with: eating Associated Symptoms: shortness of breath Treatments Prior to Arrival: none - Related Data Previous Rx's Medication Instructions Recorded Last Taken Type ALBUTEROL Inhaler (OR & NICU) 2 puff IH QID PRN #1 inhalation 02/01/17 Unknown Rx [Proair] Losartan [Cozaar] 100 mg PO QDAY #30 tablet 02/01/17 Unknown Rx Tiotropium [place] [Spiriva 4 gm IH DAILY #1 mist.inhal 02/01/17 Unknown Rx Respimat] metFORMIN XR [Glucophage XR] 500 mg PO BIDDIAB #60 tablet 02/01/17 Unknown Rx Furosemide [Lasix TAB] 40 mg PO QDAY #30 tablet 02/02/17 Unknown Rx glipiZIDE [Glucotrol] 5 mg PO BIDDIAB #60 tablet 02/02/17 Unknown Rx Allergies Allergy/AdvReac Type Severity Reaction Status Date / Time No Known Allergies Allergy Unverified 03/12/14 11:53 ED Review of Systems ROS: Stated complaint: TEQUILA/CANT TASTE FOOD Other details as noted in HPI Comment: All other systems reviewed and negative ED Past Medical Hx - Past Medical History Previous Medical History?: No Hx Congestive Heart Failure: No Hx Diabetes: No Hx Asthma: No Hx COPD: No Hx HIV: No - Surgical History Past Surgical History?: No - Social History Smoking Status: Never Smoker Substance Use Type: None - Medications Home Medications: Home Medications Medication Instructions Recorded Confirmed Last Taken Type ALBUTEROL Inhaler (OR & NICU) 2 puff IH QID PRN #1 inhalation 02/01/17 Unknown Rx [Proair] Losartan [Cozaar] 100 mg PO QDAY #30 tablet 02/01/17 Unknown Rx Tiotropium [place] [Spiriva 4 gm IH DAILY #1 mist.inhal 02/01/17 Unknown Rx Respimat] metFORMIN XR [Glucophage XR] 500 mg PO BIDDIAB #60 tablet 02/01/17 Unknown Rx Furosemide [Lasix TAB] 40 mg PO QDAY #30 tablet 02/02/17 Unknown Rx glipiZIDE [Glucotrol] 5 mg PO BIDDIAB #60 tablet 02/02/17 Unknown Rx ED Physical Exam - General Limitations: No Limitations General appearance: alert, in no apparent distress - Head Head exam: Present: atraumatic, normocephalic - Eye Eye exam: Present: normal appearance - ENT ENT exam: Present: normal exam, mucous membranes moist - Neck Neck exam: Present: other (patient has a thick neck). Absent: tenderness, meningismus - Respiratory Respiratory exam: Present: normal lung sounds bilaterally. Absent: respiratory distress - Cardiovascular Cardiovascular Exam: Present: regular rate, normal rhythm. Absent: systolic murmur, diastolic murmur, rubs, gallop - Back Exam Back exam: Present: normal inspection - Neurological Exam Neurological exam: Present: alert, oriented X3, normal gait - Psychiatric Psychiatric exam: Present: normal affect, normal mood - Skin Skin exam: Present: warm, dry, intact, normal color. Absent: rash ED Course Vital Signs 10/12/19 16:29 Temperature 98.5 F Pulse Rate 94 H Respiratory 18 Rate Blood Pressure 153/99 Blood Pressure 153/99 [Right] O2 Sat by Pulse 98 Oximetry ED Medical Decision Making - Lab Data Result diagrams: 10/12/19 20:07 10/12/19 20:07 - Radiology Data Radiology results: report reviewed Patient: ODETTE BASSETT MR#: [id number] : 1970 Acct:[id number] Age/Sex: 49 / M ADM Date: 10/12/19 Loc: ED Attending Dr: Ordering Physician: FAVIAN OVALLES Date of Service: 10/12/19 Procedure(s): CT neck w con Accession Number(s): [id number] cc: FAVIAN OVALLES CT soft tissue neck with contrast CLINICAL HISTORY: Difficulty swallowing. FINDINGS: No previous exams are available for comparison. The beam hardening from the patient's dental amalgam degrades image quality. There also appears to be component of motion artifact, particularly along the pharyngeal soft tissues which may be related to s wallowing. However, there does appear to be prominence of the palatine soft tissues which is fairly symmetric and may reflect lymphoid hypertrophy. There is associated a narrowing of the nasopharyngeal airway at this level. The oropharyngeal airway appears patent. However, no definitive well-defined fluid collections are identified to indicate abscess. There is mild relative increased opacification involving the left submandibular gland at. However, no significant inflammatory changes or focal lesions are identified at. No calcified sialoliths are seen within the glands or along the visualized 4. The parotid glands demonstrate symmetric attenuation without calcification. There are a few scattered cervical lymph nodes including within the submandibular regions bilaterally at. The largest nodes measure approximately 0.8 cm in greatest short axis diameter and are likely reactive. The epiglottis is appropriate in size at. The laryngeal structures appear symmetric. There is no significant displacement of the visualized mid to upper esophagus. The thyroid gland appears to demonstrate appropriate size and contour. There is also notable beam hardening at the this level that no dominant lesions are appreciated at. The visualized vascular structures appear to demonstrate appropriate contrast opacification. The left vertebral artery appears to arise directly from the aortic arch; a developmental variant. All CT scans at this location are performed using the CT dose reduction for ALARA by means of automated exposure control. IMPRESSION: There is symmetric prominence of the palatine soft tissues as detailed above which may reflect lymphoid hypertrophy. No definitive well-defined fluid collections are identified to indicate abscess. Signer Name: Tiburcio Latif MD Signed: 10/12/2019 9:56 PM Workstation Name: [id number] Transcribed By: MR Dictated By: Tiburcio Latif MD Electronically Authenticated By: Tiburcio Latif MD Signed Date/Time: 10/12/192155 DD/ 45 TD/TT: - Medical Decision Making 49-year-old -[place] male presents to the emergency room for 8 month history of difficulty swallowing solid foods. Patient also reports that he can't taste food and has shortness of breath with walking laying down. Patient does admit that he is on oxygen 2 L at night. Patient does admit to difficulty sleeping. Patient never had a sleep study. Patient denies any pain. He is followed by [facility]. Critical care attestation.: If time is entered above; I have spent that time in minutes in the direct care of this critically ill patient, excluding procedure time. ED Disposition Clinical Impression: Obstructive sleep apnea, Difficulty swallowing solids Disposition: TO HOME OR SELFCARE Is pt being admited?: No Does the pt Need Aspirin: No Condition: Stable Additional Instructions: CT scan is negative for any obstruction or abscess. Please follow up with your primary care doctor and our otolaryngologists. He also need to be evaluated for sleep apnea with a CPAP machine. Referrals: [facility] [Outside] - 3-5 Days TANA MORENO MD [Staff Physician] - 3-5 Days
[2019-10-12 20:48] LABS: Basophils % (Auto) 0.7 % (0.0-1.8); Eosinophils # (Auto) 0.1 K/mm3 (0.0-0.4); Eosinophils % (Auto) 1.2 % (0.0-4.3); Hematocrit 38.9 % (35.5-45.6); Hemoglobin 12.8 gm/dl (11.8-15.2); Lymphocytes % (Auto) 34.2 % (13.4-35.0); Mean Corpuscular HGB Conc 33 % (32-34); Mean Corpuscular Volume 89 fl (84-94); Monocytes # (Auto) 0.5 K/mm3 (0.0-0.8); Platelet Count 145 K/mm3 (140-440); Red Cell Distribution Width 15.8 % (13.2-15.2)
[2019-10-12 20:58] LABS: Alanine Aminotransferase 50 units/L (7-56); Albumin 4.5 g/dL (3.9-5); BUN/Creatinine Ratio 8; Blood Urea Nitrogen 9 mg/dL (9-20); Calcium 9.5 mg/dL (8.4-10.2); Hemolysis Index 56
[2019-10-12] MEDS ORDERED: SODIUM CHLORIDE 0.9% 1000 ML 1,000 ML IV ONE (21:06)
--- NOTE | 2019-10-12 22:00 | Cat Scan Report ---
CT soft tissue neck with contrast CLINICAL HISTORY: Difficulty swallowing. FINDINGS: No previous exams are available for comparison. The beam hardening from the patient's denta l amalgam degrades image quality. There also appears to be component of motion artifact, particularly along the pharyngeal soft tissues which may be related to swallowing. However, there does appear to be prominence of the palatine soft tissues which is fairly symmetric and may reflect lymphoid hypertr ophy. There is associated a narrowing of the nasopharyngeal airway at this level. The oropharyngeal a irway appears patent. However, no definitive well-defined fluid collections are identified to indicat e abscess. There is mild relative increased opacification involving the left submandibular gland at. However, no significant inflammatory changes or focal lesions are identified at. No calcified sialoliths are see n within the glands or along the visualized 4. The parotid glands demonstrate symmetric attenuation w ithout calcification. There are a few scattered cervical lymph nodes including within the submandibular regions bilaterally at. The largest nodes measure approximately 0.8 cm in greatest short axis diameter and are likely re active. The epiglottis is appropriate in size at. The laryngeal structures appear symmetric. There is no significant displacement of the visualized mid to upper esophagus. The thyroid gland appears to demonstrate appropriate size and contour. There is also notable beam johanna dening at the this level that no dominant lesions are appreciated at. The visualized vascular structu res appear to demonstrate appropriate contrast opacification. The left vertebral artery appears to ar ise directly from the aortic arch; a developmental variant. All CT scans at this location are perform ed using the CT dose reduction for ALARA by means of automated exposure control. IMPRESSION: There is symmetric prominence of the palatine soft tissues as detailed above which may reflect lympho id hypertrophy. No definitive well-defined fluid collections are identified to indicate abscess. Signer Name: Tiburcio Latif MD Signed: 10/12/2019 9:56 PM Workstation Name: [id number]
[2019-10-12 23:39] VITALS: BP 134/89
== END 2019-10-12 22:53 | disposition home or self-care (01) ==
LOC: ED 14:43
DX: G47.33 Obstructive sleep apnea (adult) (pediatric) (principal); R13.10 Dysphagia, unspecified
CPT/HCPCS: 36415; 70491; 80053; 85025; 99284; J7030; Q9967

== ENCOUNTER 2020-08-27 06:59 | Inpatient (IN) | payer OTHER ==
[2020-08-27] MEDS ORDERED: ASPIRIN 325 MG TAB PO ONE (07:36)
[2020-08-27 08:20] LABS: Basophils # (Auto) 0.1 K/mm3 (0.0-0.1); Basophils % (Auto) 0.7 % (0.0-1.8); Eosinophils # (Auto) 0.1 K/mm3 (0.0-0.4); Hemoglobin 12.2 gm/dl (11.8-15.2); Lymphocytes % (Auto) 25.9 % (13.4-35.0); Mean Corpuscular HGB Conc 33 % (32-34); Mean Corpuscular Volume 89 fl (84-94); Monocytes # (Auto) 0.8 K/mm3 (0.0-0.8); Platelet Count 156 K/mm3 (140-440); Red Blood Count 4.18 M/mm3 (3.65-5.03); Red Cell Distribution Width 15.5 % (13.2-15.2)
--- NOTE | 2020-08-27 08:35 | XRay Report ---
CHEST 2 VIEWS INDICATION: Chest Pain. COMPARISON: January 30, 2017 FINDINGS: Support devices: None. Heart: Within normal limits. Lungs: No acute air space or interstitial disease. Pleura: No significant pleural effusion. No pneumothorax. Additional findings: None. IMPRESSION: 1. No acute findings. Signer Name: Dayday Hoffman MD Signed: 08/27/2020 8:31 AM Workstation Name: [id number]
[2020-08-27] MEDS ORDERED: oxyCODONE /ACETAMINOPHEN 5-325MG TAB PO ONE (08:58)
[2020-08-27 09:00] LABS: BUN/Creatinine Ratio 9; Blood Urea Nitrogen 11 mg/dL (9-20); Calcium 9.2 mg/dL (8.4-10.2); Hemolysis Index 8
--- NOTE | 2020-08-27 09:08 | Emergency Department Report ---
ED General Adult HPI - General Chief complaint: Chest Pain Stated complaint: LF SIDE ARM PAIN Time Seen by Provider: 08/27/20 08:32 Source: patient Mode of arrival: Wheelchair Limitations: No Limitations - History of Present Illness Initial comments: Patient is a 50-year-old male presents emergency room with complaints of left arm pain that began yesterday. He states that his arm is also tingling and he has left arm swelling. Patient states that he has some mild left-sided chest pain and mild shortness of breath. 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 He denies any fall or injury. He denies any nausea, vomiting, diarrhea, diaphoresis, pleuritic chest pain, leg swelling. Has a past medical history of diabetes, HTN, ARABELLA. No allergies to medications. He denies any recent travel, sick contacts, recent surgery, immobilization, hormone use. He denies any family cardiac history or family history of DVT/PE. He states he is a non-smoker, nondrinker, denies drug use. Severity scale (0 -10): 10 - Related Data Previous Rx's Medication Instructions Recorded Last Taken Type Albuterol Mdi (or & Nicu Only) 2 puff IH QID PRN #1 inhalation 02/01/17 Unknown Rx [Proair] Losartan [Cozaar] 100 mg PO QDAY #30 tablet 02/01/17 Unknown Rx Tiotropium [place] [Spiriva 4 gm IH DAILY #1 mist.inhal 02/01/17 Unknown Rx Respimat] metFORMIN XR [Glucophage XR] 500 mg PO BIDDIAB #60 tablet 02/01/17 Unknown Rx Furosemide [Lasix TAB] 40 mg PO QDAY #30 tablet 02/02/17 Unknown Rx glipiZIDE [Glucotrol] 5 mg PO BIDDIAB #60 tablet 02/02/17 Unknown Rx Allergies Allergy/AdvReac Type Severity Reaction Status Date / Time No Known Allergies Allergy Unverified 03/12/14 11:53 ED Review of Systems ROS: Stated complaint: LF SIDE ARM PAIN Other details as noted in HPI Comment: All other systems reviewed and negative ED Past Medical Hx - Past Medical History Previous Medical History?: Yes Hx Congestive Heart Failure: No Hx Diabetes: Yes Hx Asthma: No Hx COPD: No Hx HIV: No - Surgical History Past Surgical History?: No - Social History Smoking Status: Never Smoker Substance Use Type: None - Medications Home Medications: Home Medications Medication Instructions Recorded Confirmed Last Taken Type Albuterol Mdi (or & Nicu Only) 2 puff IH QID PRN #1 inhalation 02/01/17 Unknown Rx [Proair] Losartan [Cozaar] 100 mg PO QDAY #30 tablet 02/01/17 Unknown Rx Tiotropium [place] [Spiriva 4 gm IH DAILY #1 mist.inhal 02/01/17 Unknown Rx Respimat] metFORMIN XR [Glucophage XR] 500 mg PO BIDDIAB #60 tablet 02/01/17 Unknown Rx Furosemide [Lasix TAB] 40 mg PO QDAY #30 tablet 02/02/17 Unknown Rx glipiZIDE [Glucotrol] 5 mg PO BIDDIAB #60 tablet 02/02/17 Unknown Rx ED Physical Exam - General Limitations: No Limitations General appearance: alert, in no apparent distress - Head Head exam: Present: atraumatic, normocephalic - Eye Eye exam: Present: normal appearance - ENT ENT exam: Present: mucous membranes moist - Respiratory Respiratory exam: Present: normal lung sounds bilaterally, chest wall tenderness (reproducible left anterior chest wall ttp, no crepitus, no deformity). Absent: respiratory distress, wheezes, rales, rhonchi, stridor, accessory muscle use, decreased breath sounds, prolonged expiratory - Cardiovascular Cardiovascular Exam: Present: regular rate, normal rhythm, normal heart sounds. Absent: systolic murmur, diastolic murmur, rubs, gallop - Extremities Exam Extremities exam: Present: other (generalized ttp of the LUE, decreased ROM of the LUE secondary to pain, there is edema present of the LUE, neurovascularly intact, 2+ distal pulses, no skin changes, no erythema, no increased warmth) - Neurological Exam Neurological exam: Present: alert, oriented X3 - Psychiatric Psychiatric exam: Present: normal affect, normal mood - Skin Skin exam: Present: warm, dry, intact ED Course Vital Signs 08/27/20 08/27/20 08/27/20 07:29 12:54 15:32 Temperature 99.0 F Pulse Rate 77 Respiratory 18 18 20 Rate Blood Pressure 116/83 [Right] O2 Sat by Pulse 94 99 Oximetry 08/27/20 15:38 Temperature 98.2 F Pulse Rate 78 Respiratory 20 Rate Blood Pressure 179/118 [Right] O2 Sat by Pulse 96 Oximetry - Reevaluation(s) Reevaluation #1: 08/27/20 09:41 Patient's troponin came back elevated at 0.102, second EKG performed and remains unchanged, discussed case with Dr. Lena Stone, ER attending, appears less likely ACS and more likely from VTE, advised to order a CT angio chest 08/27/20 12:40 PM discussed findings with Dr. Unique Stone, who recommended cardiology consultation and admission to hospitalist service 08/27/20 12:45 PM Susan ward secretary paged cardiology 08/27/20 13:40 [place], ward secretary paged cardiology again 08/27/20 2:15 PM ward secretary paged cardiology 08/27/20 15:00 reji digital asset specialist paged cardiology 08/27/20 16:05 spoke to , hospitalist regarding pt, will accept and resume care of patient, will admit to hospitalist service 08/27/20 16:20 Reji digital asset specialist paged cardiology office again, they were also not able to reach hose operator, states that they put out multiple pages for another provider 08/27/20 16:[address] Gonzales, hose operator regarding pt history and results, advised to give pt lovenox and admit to hospitalist service ED Medical Decision Making - Lab Data Result diagrams: 08/27/20 08:00 08/27/20 08:00 - EKG Data EKG shows normal: sinus rhythm, axis, ST-T waves Rate: normal - EKG Data 08/27/20 8:00 prolonged UT interval at 270 RBBB no STEMI 08/27/20 9:32 second EKG: NSR rate: 72 bpm normal axis prolonged UT interval at 275 RBBB no STEMI - Radiology Data Radiology results: report reviewed, image reviewed CXR no acute findings doppler LUE no sonographic evidence of DVT, no additional findings CT angio chest negative for PE or other acute abnormality - Medical Decision Making Patient is a 50-year-old male presents emergency room with complaints of left arm pain that began yesterday. He states that his arm is also tingling and he has left arm swelling. Patient states that he has some mild left-sided chest pain and mild shortness of breath. 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 He denies any fall or injury. He denies any nausea, vomiting, diarrhea, diaphoresis, pleuritic chest pain, leg swelling. Has a past medical history of diabetes, HTN, ARABELLA. No allergies to medications. He denies any recent travel, sick contacts, recent surgery, immobilization, hormone use. He denies any fami ly cardiac history or family history of DVT/PE. He states he is a non-smoker, nondrinker, denies drug use. initial vitals are stable. on exam: reproducible left anterior chest wall ttp, no crepitus, no deformity, generalized ttp of the LUE, decreased ROM of the LUE secondary to pain, there is edema present of the LUE, neurovascularly intact, 2+ distal pulses, no skin changes, no erythema, no increased warmth. EKG prolonged UT interval at 270, RBBB, no STEMI. CXR no acute findings. doppler LUE no sonographic evidence of DVT, no additional findings. labs with elevated troponin, elevated CK, elevated CK-MB. Patient's troponin came back elevated at 0.102, second EKG performed and remains unchanged, discussed case with Dr. Lena Stone, ER attending, appears less likely ACS and more likely from VTE, advised to order a CT angio chest. CT angio chest negative for PE or other acute abnormality. discussed findings with Dr. Unique Stone, who recommended cardiology consultation and admission to hospitalist service. pt admitted for NSTEMI. spoke to Dr. Gonzales, hose operator regarding pt history and results, advised to give pt lovenox and admit to hospitalist service. spoke to , hospitalist regarding pt, will accept and resume care of patient, will admit to hospitalist service. lovenox dose given based on adjusted body weight dose. - Differential Diagnosis DVT, PE, ACS, NSTEMI, aortic aneurysm, dissection, pericarditis Critical Care Time: Yes Critical care time in (mins) excluding proc time.: 40 Critical care attestation.: If time is entered above; I have spent that time in minutes in the direct care of this critically ill patient, excluding procedure time. Critical Care Time: Critical care time includes multiple reexaminations, multiple consultations, interpretation of laboratory and diagnostic studies ED Disposition Clinical Impression: NSTEMI (non-ST elevated myocardial infarction), Elevated CK, Elevated CK-MB level, Pain and swelling of left upper extremity Chest pain Qualifiers: Chest pain type: unspecified Qualified Code(s): R07.9 - Chest pain, unspecified Dyspnea Qualifiers: Dyspnea type: unspecified Qualified Code(s): R06.00 - Dyspnea, unspecified Disposition: 09 OP ADMIT IP TO THIS HOSP Is pt being admited?: Yes Does the pt Need Aspirin: Yes Condition: Serious Instructions: Chest Pain (ED) Referrals: PRIMARY CARE,MD [Primary Care Provider] - 3-5 Days Time of Disposition: 16:34 Print Language: SWEDISH
[2020-08-27 09:34] LABS: Chol/HDL Ratio 5.36 %; HDL Cholesterol 46 mg/dL (40-59); LDL Cholesterol,Direct 178 mg/dL (50-130)
[2020-08-27 09:38] LABS: Alanine Aminotransferase 47 units/L (7-56); Albumin 4.4 g/dL (3.9-5)
[2020-08-27 09:43] LABS: Bilirubin,Direct < 0.2 mg/dL (0-0.2)
[2020-08-27 09:56] LABS: INR 1.1 (0.87-1.13)
[2020-08-27 09:57] LABS: Partial Thromboplastin Time 31.3 Sec. (24.2-36.6)
--- NOTE | 2020-08-27 11:04 | Vascular Lab Report ---
DUPLEX DOPPLER UPPER EXTREMITY VENOUS, LEFT INDICATION / CLINICAL INFORMATION: left arm swelling and pain. TECHNIQUE: Duplex doppler imaging was performed through the veins of the left upper extremity using venous compr ession and other maneuvers. COMPARISON: None available. FINDINGS: LEFT INTERNAL JUGULAR VEIN: Negative. LEFT SUBCLAVIAN VEIN: Negative. LEFT AXILLARY VEIN: Negative. LEFT BRACHIAL VEIN: Negative. LEFT FOREARM VEINS: Negative. LEFT BASILIC VEIN (SUPERFICIAL): Negative. ADDITIONAL FINDINGS: None. IMPRESSION: 1. No sonographic evidence for DVT. Signer Name: Dayday Hoffman MD Signed: 08/27/2020 11:00 AM Workstation Name: [id number]
[2020-08-27 11:41] LABS: Creatine Kinase MB 17.6 ng/mL (0.0-4.0)
--- NOTE | 2020-08-27 12:12 | Cat Scan Report ---
CT angio chest INDICATION: CP, SOB, left arm pain/edema. TECHNIQUE: All CT scans at this location are performed using CT dose reduction for ALARA by means of automated e xposure control. 3 plane MIP and/or 3-D reconstruction images were produced. COMPARISON: None available. FINDINGS: Mediastinum, bret and axillae are negative. Uppermost abdomen is negative. No pleural fluid. No signi ficant parenchymal lesions. No evidence of pulmonary embolus. IMPRESSION: 1. Negative for pulmonary embolus or other acute abnormality. Signer Name: Ramakrishna Greenwood MD Signed: 08/27/2020 12:07 PM Workstation Name: [id number]
[2020-08-27] MEDS ORDERED: ONDANSETRON 4 MG/2 ML INJ IV ONE (12:43)
[2020-08-27] MEDS ORDERED: MORPHINE 4 MG/1 ML INJ IV ONE (12:43)
[2020-08-27] MEDS ORDERED: SODIUM CHLORIDE 0.9% 1000 ML 1,000 ML IV ONE ×2 (14:05→14:06)
[2020-08-27] MEDS ORDERED: HYDROmorphone 1 MG/1 ML INJ IV ONE (15:16)
[2020-08-27] MEDS ORDERED: ENOXAPARIN 100 MG/1 ML INJ SUB-Q ONE ×2 (16:28→17:39)
--- NOTE | 2020-08-27 16:45 | History and Physical Report ---
History of Present Illness Chief complaint: My chest hurts History of present illness: 50 YO Male with Obesity Hypoventilation Syndrome, HTN, DM presents to ED for evaluation. Patient states that he has experienced pain in his chest over the past 1 day with persistent symptoms over the same timeframe. Patient states that his pain is 710/10, constant, radiates to the left shoulder and left arm, crushing in nature, associated with shortness of breath, worsened with exertion, relieved with rest. Patient knowledges decreased exercise tolerance. Patient transported to [facility] for further care and evaluation of the aforementioned symptoms. Patient seen and evaluated in the emergency department. All lab and imaging studies reviewed. Patient found to have elevated troponin levels consistent with non-ST elevation MT, diastolic CHF, and rhabdomyolysis. Cardiology team consulted in ED and recommended Lovenox therapy. Patient initiated on Lovenox therapy in the emergency department. Patient admitted to telemetry due to increased risk of worsening symptoms. Patient initiated on chest pain protocol. Patient denies fever, chills, palpitations, productive cough, skin rash, recent ill contacts, prolonged travel/immobility, unilateral leg swelling, calf pain, individual/family history of DVT/PE/bleeding/blood clotting disorders, or known exposure to COVID-19. Prior admission on 01/30/2017 reviewed. All medication listed at time of admission has been reconciled. Past History Past Medical History: diabetes, hypertension, other (See HPI) Past Surgical History: No surgical history, Other (Reviewed) Social history: , lives with family. denies: smoking, alcohol abuse, prescription drug abuse Family history: diabetes, hypertension Medications and Allergies Allergies Allergy/AdvReac Type Severity Reaction Status Date / Time No Known Allergies Allergy Unverified 03/12/14 11:53 Home Medications Medication Instructions Recorded Confirmed Last Taken Type Albuterol Mdi (or & Nicu Only) 2 puff IH QID PRN #1 inhalation 02/01/17 Unknown Rx [Proair] Losartan [Cozaar] 100 mg PO QDAY #30 tablet 02/01/17 Unknown Rx Tiotropium [place] [Spiriva 4 gm IH DAILY #1 mist.inhal 02/01/17 Unknown Rx Respimat] metFORMIN XR [Glucophage XR] 500 mg PO BIDDIAB #60 tablet 02/01/17 Unknown Rx Furosemide [Lasix TAB] 40 mg PO QDAY #30 tablet 02/02/17 Unknown Rx glipiZIDE [Glucotrol] 5 mg PO BIDDIAB #60 tablet 02/02/17 Unknown Rx Review of Systems Constitutional: no weight loss, no weight gain, no fever, no chills Ears, nose, mouth and throat: no ear pain, no ear discharge, no tinnitis, no decreased hearing, no nose pain Cardiovascular: chest pain, shortness of breath, leg edema, decreased exercise tolerance, no orthopnea, no rapid/irregular heart beat, no syncope, no lightheadedness Respiratory: no cough, no cough with sputum, no excessive sputum, no hemoptysis Gastrointestinal: no abdominal pain, no nausea, no vomiting, no diarrhea, no constipation Genitourinary Male: no hematuria, no flank pain, no discharge, no urinary frequency, no urinary hesitancy Rectal: no pain, no incontinence, no bleeding Musculoskeletal: no neck stiffness, no neck pain, no shooting arm pain, no low back pain, no shooting leg pain Integumentary: no rash, no pruritis, no sores, no wounds, no jaundice Neurological: no paralysis, no weakness, no parathesias, no numbness, no tingling, no seizures Psychiatric: no memory loss, no change in sleep habits, no change in appetite, no change in libido, no suicidal ideation Endocrine: no cold intolerance, no heat intolerance, no polyphagia, no polydipsia Hematologic/Lymphatic: no easy bruising, no lymphedema Allergic/Immunologic: no persistent infections, no anaphylaxis, no angioedema Exam - Constitutional Vitals: Temp Pulse Resp BP Pulse Ox 98.2 F 78 20 179/118 96 08/27/20 15:38 08/27/20 15:38 08/27/20 15:38 08/27/20 15:38 08/27/20 15:38 General appearance: Present: mild distress, obese - EENT Eyes: Present: PERRL ENT: hearing intact, clear oral mucosa - Neck Neck: Present: supple, normal ROM - Respiratory Respiratory effort: normal Respiratory: bilateral: CTA - Cardiovascular Heart Sounds: Present: S1 & S2. Absent: rub, click - Extremities Extremities: pulses symmetrical Extremity abnormal: edema Peripheral Pulses: within normal limits - Abdominal General gastrointestinal: Present: soft, non-tender, non-distended, normal bowel sounds Male genitourinary: Present: normal - Integumentary Integumentary: Present: clear, warm, dry - Musculoskeletal Musculoskeletal: gait normal, strength equal bilaterally - Psychiatric Psychiatric: appropriate mood/affect, intact judgment & insight - Neurologic Neurologic: CNII-XII intact, moves all extremities HEART Score - HEART Score Troponin: Troponin T 0.087 ng/mL (0.00-0.029) H D 08/27/20 15:07 Results - Labs CBC & Chem 7: 08/27/20 08:00 08/27/20 08:00 Labs: Abnormal lab results 08/27/20 08/27/20 08/27/20 Range/Units 08:00 08:00 09:08 RDW 15.5 H (13.2-15.2) % [place] % (Auto) 10.0 H (0.0-7.3) % Carbon Dioxide 31 H (22-30) mmol/L Glucose 156 H (75-100) mg/dL AST 93 H (5-40) units/L Total Creatine Kinase (55-170) units/L CK-MB (CK-2) (0.0-4.0) ng/mL Troponin T 0.102 H* (0.00-0.029) ng/mL Total Protein 8.8 H (6.3-8.2) g/dL Triglycerides 216 H (2-149) mg/dL Cholesterol 247 H (50-199) mg/dL LDL Cholesterol Direct 178 H (50-130) mg/dL 08/27/20 08/27/20 08/27/20 Range/Units 11:08 11:08 15:07 RDW (13.2-15.2) % [place] % (Auto) (0.0-7.3) % Carbon Dioxide (22-30) mmol/L Glucose (75-100) mg/dL AST (5-40) units/L Total Creatine Kinase 5008 H (55-170) units/L CK-MB (CK-2) 17.6 H (0.0-4.0) ng/mL Troponin T 0.111 H* 0.087 H D (0.00-0.029) ng/mL Total Protein (6.3-8.2) g/dL Triglycerides (2-149) mg/dL Cholesterol (50-199) mg/dL LDL Cholesterol Direct (50-130) mg/dL Assessment and Plan - Patient Problems (1) NSTEMI (non-ST elevated myocardial infarction) Current Visit: Yes Status: Acute Plan to address problem: NSTEMI protocol: Admit to telemetry, therapeutic anticoagulation, serial cardiac enzymes, serial EKG, remote telemetry monitoring, cardiology team consulted in ED, therapeutic anticoagulation with Lovenox, echocardiogram ordered and pending at time of admission, (2) Diastolic CHF Current Visit: Yes Status: Acute Qualifiers: Heart failure chronicity: acute Qualified Code(s): I50.31 - Acute diastolic (congestive) heart failure Plan to address problem: Strict I/O, monitor urine output every shift, daily weight, afterload reduction, BNP, chest x-ray, thyroid panel, echocardiogram ordered and is pending at time of admission. (3) Obesity hypoventilation syndrome Current Visit: Yes Status: Acute Plan to address problem: Supplemental oxygen, chest x-ray, pulse oximetry, nebulizer therapy, noninvasive positive pressure ventilation as clinically indicated, outpatient pulmonary follow-up for sleep study (4) Hyperlipidemia Current Visit: Yes Status: Acute Qualifiers: Hyperlipidemia type: mixed hyperlipidemia Qualified Code(s): E78.2 - Mixed hyperlipidemia Plan to address problem: Low-cholesterol diet, risk factor reduction, lipid panel, statin therapy. (5) First degree AV block Current Visit: No Status: Acute Plan to address problem: Admit to telemetry, remote telemetry monitoring, cardiology consulted in ED, (6) Accelerated hypertension Current Visit: Yes Status: Acute Plan to address problem: Monitor blood pressure every shift, continue medical management, 10 mg hydralazine every 6 hours as needed for systolic blood pressure greater than or equal to 155 mmHg (7) Rhabdomyolysis Current Visit: Yes Status: Acute Qualifiers: Encounter type: initial encounter Plan to address problem: Supportive care, CK level, repeat CK level in a.m., encourage free water intake. (8) DVT prophylaxis Current Visit: Yes Status: Acute Plan to address problem: SCD to bilateral lower extremities while in bed, continue therapeutic anticoagulation.
[2020-08-27] MEDS ORDERED: ASPIRIN 81 MG TAB CHEW PO STA (16:47)
[2020-08-27] MEDS ORDERED: ONDANSETRON 4 MG/2 ML INJ IV PRN (17:00)
[2020-08-27] MEDS ORDERED: ALBUTEROL 2.5 MG/3 ML NEBU IH PRN (17:00)
[2020-08-27] MEDS ORDERED: ACETAMINOPHEN 325 MG TAB PO PRN ×2 (17:00)
[2020-08-27] MEDS ORDERED: NITROGLYCERIN 0.4 MG TAB SUBL SL PRN (17:00)
[2020-08-27] MEDS ORDERED: MORPHINE 4 MG/1 ML INJ IV PRN (17:00)
[2020-08-27] MEDS ORDERED: hydrALAZINE 20 MG/1 ML INJ IV PRN (17:25)
--- NOTE | 2020-08-27 17:40 | Consultation ---
History of Present Illness Consult date: 08/27/20 Consult reason: elevated troponin History of present illness: The patient is a 50-year-old man admitted to the hospital with 2 to 3 days of left arm pain, decreased range of motion, tenderness to touch, was evaluated in the emergency room, and cardiology consultation was requested for an "elevated troponin level of 0.11". During my examination, the patient is unable to lift his arm due to pain and discomfort, has marked tenderness to palpation over the left forearm and shoulder. There is also some mild induration to the left arm compared to the right. He denies any acute injury to the shoulder or the arm. He denies fever although his temperature in the hospital is 99 Fahrenheit. His laboratory exam showed a CPK of 5,000, very suggestive of a possible acute inflammatory process involving the left upper extremity. The patient's medical history is notable for obesity, diabetes and obstructive sleep apnea. There is no prior cardiac history. He has no chest pain. He has chronic fatigue and dyspnea related to his sleep apnea and chronic lung disease. EKG is normal sinus rhythm with a right bundle branch block, no acute ST segment abnormalities. Past History Past Medical History: diabetes, hypertension, other (Sleep apnea) Past Surgical History: No surgical history, Other (Reviewed) Social history: , lives with family. denies: smoking, alcohol abuse, prescription drug abuse Family history: diabetes, hypertension Medications and Allergies Allergies Allergy/AdvReac Type Severity Reaction Status Date / Time No Known Allergies Allergy Unverified 03/12/14 11:53 Home Medications Medication Instructions Recorded Confirmed Last Taken Type Albuterol Mdi (or & Nicu Only) 2 puff IH QID PRN #1 inhalation 02/01/17 Unknown Rx [Proair] Losartan [Cozaar] 100 mg PO QDAY #30 tablet 02/01/17 Unknown Rx Tiotropium [place] [Spiriva 4 gm IH DAILY #1 mist.inhal 02/01/17 Unknown Rx Respimat] metFORMIN XR [Glucophage XR] 500 mg PO BIDDIAB #60 tablet 02/01/17 Unknown Rx Furosemide [Lasix TAB] 40 mg PO QDAY #30 tablet 02/02/17 Unknown Rx glipiZIDE [Glucotrol] 5 mg PO BIDDIAB #60 tablet 02/02/17 Unknown Rx Active Meds: Active Medications Acetaminophen (Tylenol) 650 mg PO Q6H PRN PRN Reason: Pain, Mild (1-3) Albuterol (Proventil) 2.5 mg IH Q4HRT PRN PRN Reason: Shortness Of Breath Atorvastatin Calcium (Lipitor) 40 mg PO QHS JO ANN Enoxaparin Sodium (Enoxaparin) 120 mg 1 mg/kg (130 mg) SUB-Q Q12HR JO ANN; Protocol Furosemide (Lasix) 40 mg PO QDAY JO ANN Hydralazine HCl (Apresoline) 10 mg IV Q6HR PRN PRN Reason: Hypertension Losartan Potassium (Cozaar) 100 mg PO QDAY JO ANN Morphine Sulfate (Morphine) 2 mg IV Q8H PRN PRN Reason: Pain , Severe (7-10) Nitroglycerin (Nitrostat) 0.4 mg SL Q5M PRN PRN Reason: Chest Pain Ondansetron HCl (Zofran) 4 mg IV Q8H PRN PRN Reason: Nausea And Vomiting Oxycodone/Acetaminophen (Percocet 5/325) 1 tab PO Q6H PRN PRN Reason: Pain, Moderate (4-6) Sodium Chloride (Sodium Chloride Flush Syringe 10 Ml) 10 ml IV BID JO ANN Sodium Chloride (Sodium Chloride Flush Syringe 10 Ml) 10 ml IV PRN PRN PRN Reason: LINE FLUSH Sodium Chloride (Sodium Chloride Flush Syringe 10 Ml) 10 ml IV PRN PRN PRN Reason: LINE FLUSH Tiotropium [place] (Spiriva) 1 puff IH Q24HR [facility] Review of Systems Cardiovascular: shortness of breath, no chest pain, no orthopnea, no palpitations, no rapid/irregular heart beat, no edema, no syncope, no lightheadedness Musculoskeletal: other (Left arm pain and decreased range of motion) Physical Examination Vital Signs Temp Pulse Resp BP Pulse Ox 99.0 F 77 18 116/83 94 08/27/20 07:29 08/27/20 07:29 08/27/20 07:29 08/27/20 07:29 08/27/20 07:29 General appearance: no acute distress HEENT: Positive: PERRL Neck: Positive: neck supple Cardiac: Positive: Reg Rate and Rhythm Lungs: Positive: Decreased Breath Sounds Neuro: Positive: Grossly Intact Abdomen: Positive: Soft Male genitourinary: Positive: deferred Skin: Positive: Clear Musculoskeletal: Decreased Range of Motion (Left arm and shoulder, with marked tenderness to palpation) Extremities: Absent: edema Results 08/27/20 08:00 08/27/20 08:00 Cardiac Enzymes 08/27/20 08/27/20 Range/Units 09:08 11:08 AST 93 H (5-40) units/L CK-MB (CK-2) 17.6 H (0.0-4.0) ng/mL Coagulation 08/27/20 Range/Units 09:08 PT 14.4 (12.2-14.9) Sec. INR 1.10 (0.87-1.13) APTT 31.3 (24.2-36.6) Sec. Lipids 08/27/20 Range/Units 08:00 Triglycerides 216 H (2-149) mg/dL Cholesterol 247 H (50-199) mg/dL HDL Cholesterol 46 (40-59) mg/dL Cholesterol/HDL Ratio 5.36 % CBC 08/27/20 Range/Units 08:00 WBC 7.5 (4.5-11.0) K/mm3 RBC 4.18 (3.65-5.03) M/mm3 Hgb 12.2 (11.8-15.2) gm/dl Hct 37.0 (35.5-45.6) % Plt Count 156 (140-440) K/mm3 Lymph # (Auto) 2.0 (1.2-5.4) K/mm3 Gregory # (Auto) 0.8 (0.0-0.8) K/mm3 Eos # (Auto) 0.1 (0.0-0.4) K/mm3 Baso # (Auto) 0.1 (0.0-0.1) K/mm3 Comprehensive Metabolic Panel 08/27/20 08/27/20 Range/Units 08:00 09:08 Sodium 138 (137-145) mmol/L Potassium 3.9 (3.6-5.0) mmol/L Chloride 98.3 (98-107) mmol/L Carbon Dioxide 31 H (22-30) mmol/L BUN 11 (9-20) mg/dL Creatinine 1.2 (0.8-1.3) mg/dL Glucose 156 H (75-100) mg/dL Calcium 9.2 (8.4-10.2) mg/dL Direct Bilirubin < 0.2 (0-0.2) mg/dL Indirect Bilirubin 0.1 mg/dL AST 93 H (5-40) units/L ALT 47 (7-56) units/L Alkaline Phosphatase 100 (35-129) units/L Total Protein 8.8 H (6.3-8.2) g/dL Albumin 4.4 (3.9-5) g/dL EKG interpretations - Telemetry EKG Rhythm: Sinus Rhythm (with right bundle branch block) Assessment and Plan Patient presented to the hospital with left arm pain, induration, decreased range of motion, marked tenderness to palpation and marked elevation of CPK levels of 5,000. His presentation is not consistent with acute coronary syndrome, instead he needs work-up for possible acute inflammatory process involving the left upper extremity.
--- NOTE | 2020-08-27 20:33 | Cat Scan Report ---
CT upper extrem LT wo con INDICATION / CLINICAL INFORMATION: left arm pain and swelling. TECHNIQUE: Routine CT of the left upper arm without contrast All CT scans at this location are performed using C T dose reduction for ALARA by means of automated exposure control. COMPARISON: None available. FINDINGS: Exam is limited secondary to a large portion of the lower arm and elbow beyond the [id number]. The re is questionable subcutaneous edema within the left upper arm. No drainable fluid collection is jay ntified within the limits of the noncontrast technique. IMPRESSION: Mild edema of the left upper cavity. No drainable fluid collection identified within the limits of th e noncontrast technique. Please see above comments. Signer Name: Keenan Montenegro MD Signed: 08/27/2020 8:28 PM Workstation Name: [id number]
[2020-08-28] MEDS: oxyCODONE /ACETAMINOPHEN 5-325MG TAB PO PRN ×2 (03:38→15:30)
[2020-08-28 05:53] LABS: Alanine Aminotransferase 43 units/L (7-56); Albumin 4.3 g/dL (3.9-5); BUN/Creatinine Ratio 7; Blood Urea Nitrogen 8 mg/dL (9-20); Calcium 9.2 mg/dL (8.4-10.2); Hemolysis Index 5
[2020-08-28] MEDS ORDERED: ENOXAPARIN 100 MG/1 ML INJ SUB-Q SCH (07:00)
--- NOTE | 2020-08-28 09:40 | Progress Note ---
Assessment and Plan Left arm pain/tenderness LUE doppler -no evidence of DVT Chest CTA -no evidence of PE LUE CT - soft tissue edema Rhabdomyolysis Elevated troponin, nonspecific Diabetes Obesity Obstructive Sleep apnea Right bundle branch block Will discontinue atorvastatin due to rhabdo. His presentation is not consistent with acute coronary syndrome. Will defer to the primary team for work-up for possible acute inflammatory process involving the left upper extremity. Subjective Date of service: 08/28/20 Interval history: Patient still with complaints of left shoulder/arm pain and tenderness. Objective Vital Signs Temp Pulse Pulse Pulse Pulse Resp BP 08/28/20 08:30 98.7 F 76 20 126/86 08/28/20 04:34 99.1 F 78 20 127/79 08/28/20 02:46 82 08/27/20 22:17 99.2 F 82 18 149/94 08/27/20 22:00 75 71 71 20 08/27/20 21:23 97.8 F 71 18 08/27/20 15:38 98.2 F 78 20 08/27/20 15:32 20 08/27/20 12:54 18 BP Pulse Ox 08/28/20 08:30 96 08/28/20 04:34 94 08/28/20 02:46 08/27/20 22:17 93 08/27/20 22:00 95 08/27/20 21:23 146/80 94 08/27/20 15:38 179/118 96 08/27/20 15:32 08/27/20 12:54 99 - Physical Examination General: No Apparent Distress HEENT: Positive: PERRL Neck: Positive: neck supple Cardiac: Positive: Reg Rate and Rhythm Lungs: Positive: Decreased Breath Sounds Neuro: Positive: Other Musculoskeletal: Decreased Range of Motion (Left arm and shoulder, with marked tenderness to palpation) Extremities: Absent: edema - Labs and Meds Cardiac Enzymes 08/27/20 08/27/20 08/28/20 Range/Units 09:08 11:08 05:02 AST 93 H 78 H (5-40) units/L CK-MB (CK-2) 17.6 H (0.0-4.0) ng/mL Coagulation 08/27/20 Range/Units 09:08 PT 14.4 (12.2-14.9) Sec. INR 1.10 (0.87-1.13) APTT 31.3 (24.2-36.6) Sec. Comprehensive Metabolic Panel 08/27/20 08/28/20 Range/Units 09:08 05:02 Sodium 137 (137-145) mmol/L Potassium 4.1 (3.6-5.0) mmol/L Chloride 96.6 L (98-107) mmol/L Carbon Dioxide 31 H (22-30) mmol/L BUN 8 L (9-20) mg/dL Creatinine 1.1 (0.8-1.3) mg/dL Glucose 138 H (75-100) mg/dL Calcium 9.2 (8.4-10.2) mg/dL Direct Bilirubin < 0.2 (0-0.2) mg/dL Indirect Bilirubin 0.1 mg/dL AST 93 H 78 H (5-40) units/L ALT 47 43 (7-56) units/L Alkaline Phosphatase 100 90 (35-129) units/L Total Protein 8.8 H 9.2 H (6.3-8.2) g/dL Albumin 4.4 4.3 (3.9-5) g/dL
[2020-08-28] MEDS ORDERED: TIOTROPIUM BROMIDE 4 GM IH SCH (10:00)
[2020-08-28] MEDS ORDERED: ENOXAPARIN 120 MG/0.8 ML INJ SUB-Q SCH (10:00)
[2020-08-28] MEDS ORDERED: KETOROLAC 30 MG/1 ML INJ IV SCH (12:00)
[2020-08-28] MEDS: LOSARTAN 50 MG TAB PO SCH (12:27)
[2020-08-28] MEDS: KETOROLAC 30 MG/1 ML INJ IV SCH ×2 (15:26→21:38)
[2020-08-28] MEDS: FUROSEMIDE 40 MG TAB PO SCH (15:27)
[2020-08-28] MEDS: ENOXAPARIN 40 MG/0.4 ML INJ SUB-Q SCH (15:27)
--- NOTE | 2020-08-28 15:32 | Progress Note ---
Assessment and Plan Assessment and plan: 50 YO Male with Obesity Hypoventilation Syndrome, HTN, DM presents to ED for evaluation. Patient states that he has experienced pain in his chest over the past 1 day with persistent symptoms over the same timeframe. Patient states that his pain is 710/10, constant, radiates to the left shoulder and left arm, crushing in nature, associated with shortness of breath, worsened with exertion, relieved with rest. Patient knowledges decreased exercise tolerance. Patient transported to [facility] for further care and evaluation of the aforementioned symptoms. Patient seen and evaluated in the emergency department. All lab and imaging studies reviewed. Patient found to have elevated troponin levels consi stent with non-ST elevation AR, diastolic CHF, and rhabdomyolysis. Cardiology team consulted in ED and recommended Lovenox therapy. Patient initiated on Lovenox therapy in the emergency department. Patient admitted to telemetry due to increased risk of worsening symptoms. Patient initiated on chest pain protocol. Patient denies fever, chills, palpitations, productive cough, skin rash, recent ill contacts, prolonged travel/immobility, unilateral leg swelling, calf pain, individual/family history of DVT/PE/bleeding/blood clotting disorders, or known exposure to COVID-19. Prior admission on 01/30/2017 reviewed. All medication listed at time of admission has been reconciled. Left arm pain: Patient is pending CT of the left upper extremity at time of admission. Patient care plan updated and discussed with ER staff. Costochondritis Pain management Left Arm Pain/ Inflammatory pain Ortho consult Toradol Still very tender. TYPE 2 AR Current Visit: Yes Status: Acute Plan to address problem: Cardiology EVALUATED Diastolic CHF Current Visit: Yes Status: Acute Qualifiers: Heart failure chronicity: acute Qualified Code(s): I50.31 - Acute diastolic (congestive) heart failure Plan to address problem: Strict I/O, monitor urine output every shift, daily weight, afterload reduction, BNP, chest x-ray, thyroid panel, echocardiogram ordered and is pending at time of admission. Obesity hypoventilation syndrome Current Visit: Yes Status: Acute Plan to address problem: Supplemental oxygen, chest x-ray, pulse oximetry, nebulizer therapy, noninvasive positive pressure ventilation as clinically indicated, outpatient pulmonary follow-up for sleep study Hyperlipidemia Current Visit: Yes Status: Acute Qualifiers: Hyperlipidemia type: mixed hyperlipidemia Qualified Code(s): E78.2 - Mixed hyperlipidemia Plan to address problem: Low-cholesterol diet, risk factor reduction, lipid panel, statin therapy. First degree AV block Current Visit: No Status: Acute Plan to address problem: Admit to telemetry, remote telemetry monitoring, cardiology consulted in ED, Accelerated hypertension Current Visit: Yes Status: Acute Plan to address problem: Monitor blood pressure every shift, continue medical management, 10 mg hydralazine every 6 hours as needed for systolic blood pressure greater than or equal to 155 mmHg Rhabdomyolysis Current Visit: Yes Status: Acute Qualifiers: Encounter type: initial encounter Plan to address problem: Supportive care, CK level, repeat CK level in a.m., encourage free water intake. Give some fluids and recheck DVT prophylaxis Current Visit: Yes Status: Acute Plan to address problem: SCD to bilateral lower extremities while in bed, continue therapeutic anticoagulation. History Interval history: Patient seen and examined, reports improvement but still with Hospitalist Physical - Constitutional Vitals: Temp Pulse Resp BP Pulse Ox 98.9 F 77 20 113/60 93 08/28/20 12:44 08/28/20 12:44 08/28/20 12:44 08/28/20 12:44 08/28/20 12:44 General appearance: Present: no acute distress - EENT Eyes: Present: PERRL, EOM intact - Neck Neck: Present: supple, normal ROM - Respiratory Respiratory effort: normal Respiratory: bilateral: CTA - Cardiovascular Rhythm: regular Heart Sounds: Present: S1 & S2. Absent: systolic murmur, diastolic murmur - Extremities Extremities: no ischemia, pulses intact, pulses symmetrical, No edema, normal temperature, normal color, abnormal (LIMITED RANGE OF MOTION LEFT UPPER EXT. TENDER TO TOUCH, INFLAMMED) Peripheral Pulses: within normal limits - Abdominal General gastrointestinal: soft, non-tender, non-distended - Integumentary Integumentary: Present: clear, warm - Psychiatric Psychiatric: appropriate mood/affect, intact judgment & insight - Neurologic Neurologic: CNII-XII intact, moves all extremities - Allied Health Allied health notes reviewed: nursing HEART Score - HEART Score Troponin: Troponin T 0.085 ng/mL (0.00-0.029) H D 08/27/20 22:53 Results - Labs CBC & Chem 7: 08/27/20 08:00 08/28/20 05:02 Labs: Laboratory Last Values WBC 7.5 K/mm3 (4.5-11.0) 08/27/20 08:00 RBC 4.18 M/mm3 (3.65-5.03) 08/27/20 08:00 Hgb 12.2 gm/dl (11.8-15.2) 08/27/20 08:00 Hct 37.0 % (35.5-45.6) 08/27/20 08:00 MCV 89 fl (84-94) 08/27/20 08:00 MCH 29 pg (28-32) 08/27/20 08:00 MCHC 33 % (32-34) 08/27/20 08:00 RDW 15.5 % (13.2-15.2) H 08/27/20 08:00 Plt Count 156 K/mm3 (140-440) 08/27/20 08:00 Lymph % (Auto) 25.9 % (13.4-35.0) 08/27/20 08:00 [place] % (Auto) 10.0 % (0.0-7.3) H 08/27/20 08:00 Eos % (Auto) 1.0 % (0.0-4.3) 08/27/20 08:00 Baso % (Auto) 0.7 % (0.0-1.8) 08/27/20 08:00 Lymph # (Auto) 2.0 K/mm3 (1.2-5.4) 08/27/20 08:00 [place] # (Auto) 0.8 K/mm3 (0.0-0.8) 08/27/20 08:00 Eos # (Auto) 0.1 K/mm3 (0.0-0.4) 08/27/20 08:00 Baso # (Auto) 0.1 K/mm3 (0.0-0.1) 08/27/20 08:00 Seg Neutrophils % 62.4 % (40.0-70.0) 08/27/20 08:00 Seg Neutrophils # 4.7 K/mm3 (1.8-7.7) 08/27/20 08:00 PT 14.4 Sec. (12.2-14.9) 08/27/20 09:08 INR 1.10 (0.87-1.13) 08/27/20 09:08 APTT 31.3 Sec. (24.2-36.6) 08/27/20 09:08 D-Dimer 192.79 ng/mlDDU (0-234) 08/27/20 09:08 Sodium 137 mmol/L (137-145) 08/28/20 05:02 Potassium 4.1 mmol/L (3.6-5.0) 08/28/20 05:02 Chloride 96.6 mmol/L (98-107) L 08/28/20 05:02 Carbon Dioxide 31 mmol/L (22-30) H 08/28/20 05:02 Anion Gap 14 mmol/L 08/28/20 05:02 BUN 8 mg/dL (9-20) L 08/28/20 05:02 Creatinine 1.1 mg/dL (0.8-1.3) 08/28/20 05:02 Estimated GFR > 60 ml/min 08/28/20 05:02 BUN/Creatinine Ratio 7 % 08/28/20 05:02 Glucose 138 mg/dL (75-100) H 08/28/20 05:02 POC Glucose 122 mg/dL (70-105) H 08/28/20 13:03 Calcium 9.2 mg/dL (8.4-10.2) 08/28/20 05:02 Total Bilirubin 0.40 mg/dL (0.1-1.2) 08/28/20 05:02 Direct Bilirubin < 0.2 mg/dL (0-0.2) 08/27/20 09:08 Indirect Bilirubin 0.1 mg/dL 08/27/20 09:08 AST 78 units/L (5-40) H 08/28/20 05:02 ALT 43 units/L (7-56) 08/28/20 05:02 Alkaline Phosphatase 90 units/L (35-129) 08/28/20 05:02 Total Creatine Kinase 4333 units/L (55-170) H 08/28/20 05:02 CK-MB (CK-2) 17.6 ng/mL (0.0-4.0) H 08/27/20 11:08 CK-MB (CK-2) Rel Index 0.3 (0-4) 08/27/20 11:08 Troponin T 0.085 ng/mL (0.00-0.029) H D 08/27/20 22:53 NT-Pro-B Natriuret Pep 40.32 pg/mL (0-450) 08/27/20 15:07 Total Protein 9.2 g/dL (6.3-8.2) H 08/28/20 05:02 Albumin 4.3 g/dL (3.9-5) 08/28/20 05:02 Albumin/Globulin Ratio 0.9 % 08/28/20 05:02 Triglycerides 216 mg/dL (2-149) H 08/27/20 08:00 Cholesterol 247 mg/dL (50-199) H 08/27/20 08:00 LDL Cholesterol Direct 178 mg/dL (50-130) H 08/27/20 08:00 HDL Cholesterol 46 mg/dL (40-59) 08/27/20 08:00 Cholesterol/HDL Ratio 5.36 % 08/27/20 08:00 Jamil/IV: Voiding Method Toilet IV Catheter Type [Right Hand] INT / Saline Lock Active Medications - Current Medications Current Medications: Generic Name Dose Route Start Last Admin Trade Name Freq PRN Reason Stop Dose Admin Acetaminophen 650 mg 08/27/20 17:00 Tylenol PO Q6H PRN Pain, Mild (1-3) Albuterol 2.5 mg 08/27/20 17:00 Proventil IH Q4HRT PRN Shortness Of Breath Enoxaparin Sodium 40 mg 08/28/20 12:00 08/28/20 15:27 Enoxaparin SUB-Q 40 mg QDAY JO ANN Administration Protocol Furosemide 40 mg 08/28/20 10:00 08/28/20 15:27 Lasix PO 40 mg QDAY JO ANN Administration Hydralazine HCl 10 mg 08/27/20 17:25 Apresoline IV Q6HR PRN Hypertension Ketorolac Tromethamine 30 mg 08/28/20 14:00 08/28/20 15:26 Toradol IV 09/02/20 13:59 30 mg Q8HR JO ANN Administration Losartan Potassium 100 mg 08/28/20 10:00 08/28/20 12:27 Cozaar PO 100 mg QDAY JO ANN Administration Morphine Sulfate 2 mg 08/27/20 17:00 Morphine IV Q8H PRN Pain , Severe (7-10) Nitroglycerin 0.4 mg 08/27/20 17:00 Nitrostat SL Q5M PRN Chest Pain Ondansetron HCl 4 mg 08/27/20 17:00 Zofran IV Q8H PRN Nausea And Vomiting Oxycodone/Acetaminophen 1 tab 08/27/20 17:00 08/28/20 15:30 Percocet 5/325 PO 1 tab Q6H PRN Administration Pain, Moderate (4-6) Sodium Chloride 10 ml 08/27/20 22:00 08/28/20 15:28 Sodium Chloride Flush Syringe 10 Ml IV 10 ml BID JO ANN Administration Sodium Chloride 10 ml 08/27/20 16:47 Sodium Chloride Flush Syringe 10 Ml IV PRN PRN LINE FLUSH Tiotropium [place] 1 puff 08/28/20 10:00 Spiriva IH Q24HR JO ANN
[2020-08-28] MEDS: methylPREDNISolone Sod Succinate 125 MG/2 ML INJ IV SCH (19:00)
[2020-08-28] MEDS: TIOTROPIUM 18 MCG CAP INHALATION IH SCH (22:48)
[2020-08-29 05:22] LABS: Amphetamine Screen,Urine PRESUMPTIVE NEGATIVE; Benzodiazepines Screen,Urine PRESUMPTIVE NEGATIVE; Cannabinoid Screen,Urine PRESUMPTIVE NEGATIVE; Cocaine Screen,Urine PRESUMPTIVE NEGATIVE; Methadone Screen,Urine PRESUMPTIVE NEGATIVE; Opiate Screen,Urine PRESUMPTIVE NEGATIVE
[2020-08-29 06:18] LABS: BUN/Creatinine Ratio 12; Blood Urea Nitrogen 13 mg/dL (9-20); Calcium 8.7 mg/dL (8.4-10.2); Hemolysis Index 0
[2020-08-29] MEDS: methylPREDNISolone Sod Succinate 125 MG/2 ML INJ IV SCH ×3 (06:33→18:24)
[2020-08-29] MEDS: KETOROLAC 30 MG/1 ML INJ IV SCH ×2 (06:34→13:32)
[2020-08-29] MEDS: ENOXAPARIN 40 MG/0.4 ML INJ SUB-Q SCH (09:34)
[2020-08-29] MEDS: TIOTROPIUM 18 MCG CAP INHALATION IH SCH (10:00)
[2020-08-29] MEDS: oxyCODONE /ACETAMINOPHEN 5-325MG TAB PO PRN (10:19)
[2020-08-29] MEDS: FUROSEMIDE 40 MG TAB PO SCH (10:19)
--- NOTE | 2020-08-29 11:08 | Progress Note ---
Assessment and Plan Left arm pain/tenderness LUE doppler -no evidence of DVT Chest CTA -no evidence of PE LUE CT - soft tissue edema Rhabdomyolysis Elevated troponin, nonspecific Diabetes Obesity Obstructive Sleep apnea Right bundle branch block Conservative cardiac management. Subjective Date of service: 08/29/20 Interval history: Marked sinus bradycardia seen on telemetry during hours of sleep. Patient was placed on Bipap therapy. No further episodes. Stable sinus rhythm on telemetry. Objective Vital Signs Temp Pulse Pulse Pulse Pulse Resp BP 08/29/20 10:00 08/29/20 09:38 70 70 20 08/29/20 07:41 97.5 F L 69 20 118/82 08/29/20 04:43 99.1 F 69 16 107/77 08/29/20 02:00 66 08/29/20 01:22 66 24 08/28/20 23:57 98.7 F 67 20 117/79 08/28/20 22:00 70 20 08/28/20 19:54 99.0 F 74 16 120/76 08/28/20 16:24 99.9 F H 73 20 130/64 08/28/20 12:44 98.9 F 77 20 113/60 Pulse Ox 08/29/20 10:00 94 08/29/20 09:38 96 08/29/20 07:41 96 08/29/20 04:43 95 08/29/20 02:00 08/29/20 01:22 94 08/28/20 23:57 99 08/28/20 22:00 99 08/28/20 19:54 94 08/28/20 16:24 97 08/28/20 12:44 93 - Physical Examination General: No Apparent Distress HEENT: Positive: PERRL Neck: Positive: neck supple Cardiac: Positive: Reg Rate and Rhythm Neuro: Positive: Other Abdomen: Positive: Soft Skin: Positive: Clear Musculoskeletal: Decreased Range of Motion (Left arm and shoulder, with marked tenderness to palpation) Extremities: Absent: edema - Labs and Meds Comprehensive Metabolic Panel 08/29/20 Range/Units 05:18 Sodium 136 L (137-145) mmol/L Potassium 4.0 (3.6-5.0) mmol/L Chloride 97.1 L (98-107) mmol/L Carbon Dioxide 36 H (22-30) mmol/L BUN 13 (9-20) mg/dL Creatinine 1.1 (0.8-1.3) mg/dL Glucose 150 H (75-100) mg/dL Calcium 8.7 (8.4-10.2) mg/dL
[2020-08-29] MEDS: LOSARTAN 50 MG TAB PO SCH (13:32)
[2020-08-29 16:30] VITALS: BP 101/62
--- NOTE | 2020-08-29 16:45 | Discharge Summary ---
Providers - Providers Date of Admission: 08/27/20 16:47 Attending physician: COREY LAU MD 08/27/20 Consult to Cardiac Rehabilitation [CONS] Routine Reason For Exam: Phase I 08/27/20 16:28 Consult to Physician [CONS] Stat Comment: Consulting Provider: CECILIO CARSON Physician Instructions: Reason For Exam: NSTEMI 08/28/20 09:30 Consult to Physician [CONS] Routine Comment: Consulting Provider: CRAYN WALLACE Physician Instructions: Reason For Exam: LEFT ARM PAIN WITH INFLAMMATION 08/28/20 17:11 Consult to Physician [CONS] Routine Comment: Consulting Provider: WILL GALINDO Physician Instructions: Reason For Exam: left upper ext vasculitis Primary care physician: SENIOR ACCOUNTING ASSOCIATE Hospitalization Reason for admission: Left arm pain Condition: Serious Hospital course: 50 YO Male with Obesity Hypoventilation Syndrome, HTN, DM presents to ED for evaluation. Patient states that he has experienced pain in his chest over the past 1 day with persistent symptoms over the same timeframe. Patient states that his pain is 710/10, constant, radiates to the left shoulder and left arm, crushing in nature, associated with shortness of breath, worsened with exertion, relieved with rest. Patient knowledges decreased exercise tolerance. Patient transported to [facility] for further care and evaluation of the aforementioned symptoms. Patient seen and evaluated in the emergency department. All lab and imaging studies reviewed. Patient found to have elevated troponin levels consistent with non-ST elevation OR, diastolic CHF, and rhabdomyolysis. Cardiology team consulted in ED and recommended Lovenox therapy. Patient initiated on Lovenox therapy in the emergency department. Patient admitted to telemetry due to increased risk of worsening symptoms. Patient initiated on chest pain protocol. Patient denies fever, chills, palpitations, productive cough, skin rash, recent ill contacts, prolonged travel/immobility, unilateral leg swelling, calf pain, individual/family history of DVT/PE/bleeding/blood clotting disorders, or known exposure to COVID-19. Prior admission on 01/30/2017 reviewed. All medication listed at time of admission has been reconciled. Left arm pain: Patient is pending CT of the left upper extremity at time of admission. Patient care plan updated and discussed with ER staff. left arm pain resolved, strenghth improved to 4/5, now able to lift up to 90deg. 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 Encouraged fluid intake and need to recheck CPK and renal function in 3 days Likely diagnosis is myositis improvement with steroids which the patient will be discharged home on steroids. Outpatient orthopedic evaluation also also recommended and I also recommended the patient obtain MRI of the cervical spine outpatient. Costochondritis Pain management Left Arm Pain/ Inflammatory pain secondary to myositis Ortho consult Toradol TYPE 2 OR Current Visit: Yes Status: Acute Plan to address problem: Cardiology EVALUATED Diastolic CHF Current Visit: Yes Status: Acute Qualifiers: Heart failure chronicity: acute Qualified Code(s): I50.31 - Acute diastolic (congestive) heart failure Plan to address problem: Strict I/O, monitor urine output every shift, daily weight, afterload reduction, BNP, chest x-ray, thyroid panel, echocardiogram ordered and is pending at time of admission. Obesity hypoventilation syndrome Current Visit: Yes Status: Acute Plan to address problem: Supplemental oxygen, chest x-ray, pulse oximetry, nebulizer therapy, noninvasive positive pressure ventilation as clinically indicated, outpatient pulmonary follow-up for sleep study Hyperlipidemia Current Visit: Yes Status: Acute Qualifiers: Hyperlipidemia type: mixed hyperlipidemia Qualified Code(s): E78.2 - Mixed hyperlipidemia Plan to address problem: Low-cholesterol diet, risk factor reduction, lipid panel, statin therapy. First degree AV block Current Visit: No Status: Acute Plan to address problem: Admit to telemetry, remote telemetry monitoring, cardiology consulted in ED, Accelerated hypertension Current Visit: Yes Status: Acute Plan to address problem: Monitor blood pressure every shift, continue medical management, 10 mg hydralazine every 6 hours as needed for systolic blood pressure greater than or equal to 155 mmHg Rhabdomyolysis Current Visit: Yes Status: Acute Qualifiers: Encounter type: initial encounter Plan to address problem: Supportive care, CK level, repeat CK level in a.m., encourage free water intake. Give some fluids and recheck Disposition: DC-01 TO HOME OR SELFCARE Time spent for discharge: 35-minute Core Measure Documentation - Palliative Care Palliative Care/ Comfort Measures: Not Applicable - Core Measures Any of the following diagnoses?: none Exam - Physical Exam Narrative exam: VITAL SIGNS: Reviewed. GENERAL: The patient appears normally developed, Vital signs as documented. HEAD: No signs of head trauma. EYES: Pupils are equal. Extraocular motions intact. EARS: Hearing grossly intact. MOUTH: Oropharynx is normal. NECK: No adenopathy, no JVD. CHEST: Chest with clear breath sounds bilaterally. No wheezes, rales, or rhonchi. CARDIAC: Regular rate and rhythm. S1 and S2, without murmurs, gallops, or rubs. VASCULAR: No Edema. Peripheral pulses normal and equal in all extremities. ABDOMEN: Soft, non tender and non distended. No rebound or guarding, and no masses palpated. Bowel Sounds normal. MUSCULOSKELETAL: Good range of motion of all major joints. Extremities without clubbing, cyanosis or edema. NEUROLOGIC EXAM: Alert and oriented x 3 No focal sensory or strength deficits. Speech normal. Follows commands. PSYCHIATRIC: Mood normal. SKIN: detail exam as documented in skin assessment - Constitutional Vitals: Temp Pulse Resp BP Pulse Ox 97.8 F 70 20 101/62 93 08/29/20 16:06 08/29/20 16:06 08/29/20 16:06 08/29/20 16:06 08/29/20 16:06 Plan Activity: advance as tolerated, fall precautions Diet: low fat Special Instructions: record daily weights (WEIGHTLOSS ENCOURAGED), record daily BP diary, smoking cessation Additional Instructions: Follow at [place] for. 1. Contract Serviceman per PCP choice. 2. Sleep study. 3. 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 4. MRI CERVICAL SPINE. 4. Weight loss program Follow up with: PRIMARY CAREMD [Primary Care Provider] - 3-5 Days CARYN WALLACE MD [Staff Physician] - 7 Days Prescriptions: Prednisone [predniSONE 10 mg (6-Day Pack, 21 Tabs)] 10 mg PO .TAPER #1 tab.ds.pk Ketorolac [Toradol] 10 mg PO Q8H PRN #14 tablet PRN Reason: Pain
== END 2020-08-29 18:47 | disposition home or self-care (01) | DRG 205 ==
LOC: ED 06:59 → 4A 16:47
PROVIDERS: ADMIT Internal Medicine; ATTEND Internal Medicine
PROC: 5A09357 Assistance with Respiratory Ventilation, Less than 24 Consecutive Hours, Continuous Positive Airway Pressure (ICD-10-PCS; principal; 2020-08-29)
DX: M94.0 Chondrocostal junction syndrome [Tietze] (principal); I50.31 Acute diastolic (congestive) heart failure; I21.A1 Myocardial infarction type 2; E66.2 Morbid (severe) obesity with alveolar hypoventilation; Z68.41 Body mass index [BMI] 40.0-44.9, adult; M62.82 Rhabdomyolysis; I11.0 Hypertensive heart disease with heart failure; E11.9 Type 2 diabetes mellitus without complications; M60.9 Myositis, unspecified; I44.0 Atrioventricular block, first degree; E78.2 Mixed hyperlipidemia; I45.10 Unspecified right bundle-branch block
CPT/HCPCS: 36415; 71046; 71275; 80048; 80053; 80061; 80076; 80307; 82550; 82553; 82962; 83880; 84484; 85025; 85379; 85610; 85652; 85730; 86235; 93005; 94660; 96361; 96365; 96372; 96375; G0378; A9270-GY; J1170; J1650; J1885; J2270; J2405; J2930; J7030; Q9967

== ENCOUNTER 2021-03-08 22:02 | Emergency (ER) | payer SELFPAY ==
[2021-03-08 23:28] VITALS: BP 180/104
[2021-03-08] MEDS ORDERED: ONDANSETRON 4 MG ODT TAB PO ONE (23:57)
[2021-03-08] MEDS ORDERED: CLINDAMYCIN 150 MG CAP PO ONE (23:57)
[2021-03-08] MEDS ORDERED: oxyCODONE /ACETAMINOPHEN 5-325MG TAB PO ONE (23:57)
--- NOTE | 2021-03-09 00:04 | Emergency Department Report ---
ED General Adult HPI - General Chief complaint: Dental/Oral Stated complaint: TOOTHACHE Source: patient Mode of arrival: Ambulatory Limitations: No Limitations - History of Present Illness Initial comments: Patient is a 50-year-old -[place] male with a history of morbid obesity, zci-eyleplu-rpcouxkie diabetes and obstructive sleep apnea who presents to the ED with acute onset persistent right mandibular premolar molar toothache with swollen gums for the last 2 days, worse in the last 12 hours. Patient states that initially the pain was mild but in the last 24 hours the pain got worse and that in the last 12 hours he noticed the swelling of his right mandibular gingiva increasing. Patient however states that he has been taking [id number] ibuprofen 400 mg every 8 hours as needed the last time which was 2 hours prior to arrival in the ED. Patient however denies fever, chills, sore throat, headache, nausea and vomiting, chest pain, shortness of breath, traumatic injury, back pain or neck pain, dysphagia or dysphonia. MD Complaint: dental pain, swollen gum -: Sudden, days(s) (2) Location: mouth Radiation: non-radiation Severity scale (0 -10): 7 Quality: aching, sharp Consistency: constant Improves with: none Worsens with: eating Associated Symptoms: denies other symptoms. denies: confusion, chest pain, cough, diaphoresis, fever/chills, headaches, loss of appetite, malaise, nausea/vomiting, rash, seizure, shortness of breath, syncope, weakness, other Treatments Prior to Arrival: NSAID - Related Data Home Medications Medication Instructions Recorded Confirmed Last Taken Aspirin EC [Halfprin EC] 81 mg PO QDAY 08/29/20 08/29/20 Unknown amLODIPine 10 mg PO QDAY 08/29/20 08/29/20 Unknown lisinopriL [Zestril TAB] 20 mg PO QDAY 08/29/20 08/29/20 Unknown Previous Rx's Medication Instructions Recorded Last Taken Type Albuterol Mdi (or & Nicu Only) 2 puff IH QID PRN #1 inhalation 02/01/17 Unknown Rx [ProAir HFA Inhaler] Losartan [Cozaar] 100 mg PO QDAY #30 tablet 02/01/17 08/27/20 Rx Tiotropium [place] [Spiriva 4 gm IH DAILY #1 mist.inhal 02/01/17 Unknown Rx Respimat] metFORMIN XR [Glucophage XR] 500 mg PO BIDDIAB #60 tablet 02/01/17 08/27/20 Rx Furosemide [Lasix TAB] 40 mg PO QDAY #30 tablet 02/02/17 08/27/20 Rx glipiZIDE [Glucotrol] 5 mg PO BIDDIAB #60 tablet 02/02/17 08/27/20 Rx Ketorolac [Toradol] 10 mg PO Q8H PRN #14 tablet 08/29/20 Unknown Rx Prednisone [predniSONE 10 mg 10 mg PO .TAPER #1 tab.ds.pk 08/29/20 Unknown Rx (6-Day Pack, 21 Tabs)] Acetaminophen/Codeine [Tylenol 1 - 2 tab PO Q6H PRN #12 tab 03/09/21 Unknown Rx /Codeine # 3 tab] Clindamycin [Clindamycin CAP] 300 mg PO Q8HR #60 capsule 03/09/21 Unknown Rx Ibuprofen [Motrin] 800 mg PO Q8HR PRN #30 tablet 03/09/21 Unknown Rx Allergies Allergy/AdvReac Type Severity Reaction Status Date / Time No Known Allergies Allergy Unverified 03/12/14 11:53 ED Review of Systems ROS: Stated complaint: TOOTHACHE Other details as noted in HPI Constitutional: denies: chills, fever Eyes: denies: eye pain, eye discharge, vision change ENT: dental pain (swollen painful right mandibular gingiva; severe painful premolar and molar teeth). denies: ear pain, throat pain Respiratory: denies: cough, shortness of breath, wheezing Cardiovascular: denies: chest pain, palpitations Endocrine: no symptoms reported Gastrointestinal: denies: abdominal pain, nausea, diarrhea Genitourinary: denies: urgency, dysuria Musculoskeletal: denies: back pain, joint swelling, arthralgia Skin: denies: rash, lesions Neurological: headache. denies: weakness, paresthesias Psychiatric: denies: anxiety, depression Hematological/Lymphatic: denies: easy bleeding, easy bruising ED Past Medical Hx - Past Medical History Hx Congestive Heart Failure: No Hx Diabetes: Yes Hx Asthma: No Hx COPD: No Hx HIV: No - Social History Smoking Status: Never Smoker - Medications Home Medications: Home Medications Medication Instructions Recorded Confirmed Last Taken Type Albuterol Mdi (or & Nicu Only) 2 puff IH QID PRN #1 inhalation 02/01/17 08/28/20 Unknown Rx [ProAir HFA Inhaler] Losartan [Cozaar] 100 mg PO QDAY #30 tablet 02/01/17 08/28/20 08/27/20 Rx Tiotropium [place] [Spiriva 4 gm IH DAILY #1 mist.inhal 02/01/17 08/28/20 Unknown Rx Respimat] metFORMIN XR [Glucophage XR] 500 mg PO BIDDIAB #60 tablet 02/01/17 08/28/20 08/27/20 Rx Furosemide [Lasix TAB] 40 mg PO QDAY #30 tablet 02/02/17 08/28/20 08/27/20 Rx glipiZIDE [Glucotrol] 5 mg PO BIDDIAB #60 tablet 02/02/17 08/28/20 08/27/20 Rx Aspirin EC [Halfprin EC] 81 mg PO QDAY 08/29/20 08/29/20 Unknown History Ketorolac [Toradol] 10 mg PO Q8H PRN #14 tablet 08/29/20 Unknown Rx Prednisone [predniSONE 10 mg 10 mg PO .TAPER #1 tab.ds.pk 08/29/20 Unknown Rx (6-Day Pack, 21 Tabs)] amLODIPine 10 mg PO QDAY 08/29/20 08/29/20 Unknown History lisinopriL [Zestril TAB] 20 mg PO QDAY 08/29/20 08/29/20 Unknown History Acetaminophen/Codeine [Tylenol 1 - 2 tab PO Q6H PRN #12 tab 03/09/21 Unknown Rx /Codeine # 3 tab] Clindamycin [Clindamycin CAP] 300 mg PO Q8HR #60 capsule 03/09/21 Unknown Rx Ibuprofen [Motrin] 800 mg PO Q8HR PRN #30 tablet 03/09/21 Unknown Rx ED Physical Exam - General Limitations: No Limitations General appearance: alert, in no apparent distress - Head Head exam: Present: atraumatic, normocephalic, normal inspection - Eye Eye exam: Present: normal appearance, PERRL, EOMI Pupils: Present: normal accommodation - ENT ENT exam: Present: mucous membranes moist, TM's normal bilaterally, normal external ear exam, other (Swollen severe tender right mandibular gingiva; severely tender right mandibular premolar and molar teeth) - Neck Neck exam: Present: normal inspection, full ROM - Respiratory Respiratory exam: Present: normal lung sounds bilaterally. Absent: respiratory distress, wheezes, rales, rhonchi, chest wall tenderness, accessory muscle use, decreased breath sounds, prolonged expiratory - Cardiovascular Cardiovascular Exam: Present: regular rate, normal rhythm, normal heart sounds. Absent: systolic murmur, diastolic murmur, rubs, gallop - GI/Abdominal GI/Abdominal exam: Present: soft, normal bowel sounds. Absent: distended, tenderness, guarding, hyperactive bowel sounds, hypoactive bowel sounds, organomegaly - Extremities Exam Extremities exam: Present: normal inspection, full ROM, normal capillary refill - Back Exam Back exam: Present: normal inspection, full ROM. Absent: tenderness, CVA tenderness (R), CVA tenderness (L), muscle spasm - Neurological Exam Neurological exam: Present: alert, oriented X3, CN II-XII intact, normal gait, reflexes normal - Psychiatric Psychiatric exam: Present: normal affect, normal mood, anxious - Skin Skin exam: Present: warm, dry, intact, normal color. Absent: rash ED Course Vital Signs 03/08/21 23:27 Temperature 99.7 F H Pulse Rate 88 Respiratory 18 Rate Blood Pressure 180/104 O2 Sat by Pulse 94 Oximetry ED Medical Decision Making - Medical Decision Making This is a 50-year-old -[place] male with a history of morbid obesity, eed-zuoipel-swufjejgy diabetes and obstructive sleep apnea who presents to the ED with acute onset persistent right mandibular premolar molar toothache with swollen gums for the last 2 days, worse in the last 12 hours. Patient states that initially the pain was mild but in the last 24 hours the pain got worse and that in the last 12 hours he noticed the swelling of his right mandibular gingiva increasing. Patient however states that he has been taking [id number] ibuprofen 400 mg every 8 hours as needed the last time which was 2 hours prior to arrival in the ED. In the ED, patient is alert and oriented x3 and is not in any distress but appears to be in significant pain. Patient was treated for pain in the ED and also given initial oral antibiotics in the ED. On reevaluation, patient's pain is well controlled medications. Patient was therefore discharged home on pain medications and antibiotics and advised to follow-up with his dentist or primary care physician in 7 to 10 days for reevaluation or return to the ED immediately if symptoms get worse. - Differential Diagnosis Dental abscess; gingivitis; dental caries; Critical care attestation.: If time is entered above; I have spent that time in minutes in the direct care of this critically ill patient, excluding procedure time. ED Disposition Clinical Impression: Dental abscess, Acute gingivitis, Dental caries Disposition: TO HOME OR SELFCARE Is pt being admited?: No Does the pt Need Aspirin: No Condition: Stable Instructions: Dental Abscess, [id number], Trench Mouth Additional Instructions: Take medications with food, drink plenty of fluids and follow up with your Dentist or Primary Care Physician in 7-10 days for reevaluation. Return to the ED immediately if symptoms get worse. Prescriptions: Clindamycin [Clindamycin CAP] 300 mg PO Q8HR #60 capsule Ibuprofen [Motrin] 800 mg PO Q8HR PRN #30 tablet PRN Reason: Pain , Severe (7-10) Acetaminophen/Codeine [Tylenol /Codeine # 3 tab] 1 - 2 tab PO Q6H PRN #12 tab PRN Reason: Pain , Severe (7-10) Referrals: [facility] [Outside] - 7-10 days Forms: Work/School Release Form(ED) Time of Disposition: 00:02 Print Language: BELARUSIAN
== END 2021-03-09 03:00 | disposition home or self-care (01) ==
LOC: ED 22:02
DX: K04.7 Periapical abscess without sinus (principal); K05.10 Chronic gingivitis, plaque induced; K02.9 Dental caries, unspecified; E11.9 Type 2 diabetes mellitus without complications; Z98.890 Other specified postprocedural states; Z79.899 Other long term (current) drug therapy; Z79.82 Long term (current) use of aspirin
CPT/HCPCS: 99282; Q0162

== ENCOUNTER 2021-12-28 09:15 | Emergency (ER) | payer SELFPAY ==
[2021-12-28 10:18] VITALS: BP 144/89
[2021-12-28] MEDS ORDERED: KETOROLAC 30 MG/1 ML INJ IM ONE (10:40)
--- NOTE | 2021-12-28 10:58 | XRay Report ---
LEFT FOOT 2 VIEW(S) INDICATION / CLINICAL INFORMATION: pain, fall COMPARISON: None available. FINDINGS: BONES / JOINT(S): No acute fracture or subluxation. Mild degeneration first metatarsophalangeal joint . SOFT TISSUES: Calcific atherosclerosis. ADDITIONAL FINDINGS: None. Signer Name: Curry Alvarado DO Signed: 12/28/2021 10:54 AM Workstation Name: [employer] [facility]
--- NOTE | 2021-12-28 10:59 | Emergency Department Report ---
ED Extremity Problem HPI - General Chief complaint: Extremity Problem,Nontraumatic Stated complaint: LEFT FOOT ARTHRITIS Time Seen by Provider: 12/28/21 10:25 Source: patient Mode of arrival: Wheelchair Limitations: Physical Limitation - History of Present Illness Initial comments: This is a pleasant 51-year-old male presents emergency department with a chief complaint of left foot pain. Patient is unsure of any injuries but does report he recently helped his parents move. Does report a history of gout and reports this feels similar. Denies any associated fever, chills, night sweats, headache, dizziness, blurry vision, nausea vomiting, diarrhea, chest pain or shortness of breath, weakness or any other associated symptoms. Pain is aggravated by movement rates it as 6 out of 10. Denies any alleviating factors other than immobility. - Related Data Home Medications Medication Instructions Recorded Confirmed Last Taken Aspirin EC [Halfprin EC] 81 mg PO QDAY 08/29/20 08/29/20 Unknown amLODIPine 10 mg PO QDAY 08/29/20 08/29/20 Unknown lisinopriL [Zestril TAB] 20 mg PO QDAY 08/29/20 08/29/20 Unknown Previous Rx's Medication Instructions Recorded Last Taken Type Albuterol Mdi (or & Nicu Only) 2 puff IH QID PRN #1 inhalation 02/01/17 Unknown Rx [ProAir HFA Inhaler] Losartan [Cozaar] 100 mg PO QDAY #30 tablet 02/01/17 08/27/20 Rx Tiotropium [place] [Spiriva 4 gm IH DAILY #1 mist.inhal 02/01/17 Unknown Rx Respimat] metFORMIN XR [Glucophage XR] 500 mg PO BIDDIAB #60 tablet 02/01/17 08/27/20 Rx Furosemide [Lasix TAB] 40 mg PO QDAY #30 tablet 02/02/17 08/27/20 Rx glipiZIDE [Glucotrol] 5 mg PO BIDDIAB #60 tablet 02/02/17 08/27/20 Rx Ketorolac [Toradol] 10 mg PO Q8H PRN #14 tablet 08/29/20 Unknown Rx Prednisone [predniSONE 10 mg 10 mg PO .TAPER #1 tab.ds.pk 08/29/20 Unknown Rx (6-Day Pack, 21 Tabs)] Acetaminophen/Codeine [Tylenol 1 - 2 tab PO Q6H PRN #12 tab 03/09/21 Unknown Rx /Codeine # 3 tab] Clindamycin [Clindamycin CAP] 300 mg PO Q8HR #60 capsule 03/09/21 Unknown Rx Ibuprofen [Motrin] 800 mg PO Q8HR PRN #30 tablet 03/09/21 Unknown Rx Acetaminophen with Codeine 1 each PO Q6HR #12 12/28/21 Unknown Rx [Acetaminophen-Codeine #4 TAB] Colchicine [Colcrys] 0.6 mg PO DAILY #6 tablet 12/28/21 Unknown Rx Allergies Allergy/AdvReac Type Severity Reaction Status Date / Time No Known Allergies Allergy Unverified 12/28/21 10:18 ED Review of Systems ROS: Stated complaint: LEFT FOOT ARTHRITIS Other details as noted in HPI Comment: All other systems reviewed and negative Constitutional: denies: chills, fever Eyes: denies: eye pain, eye discharge, vision change ENT: denies: ear pain, throat pain Respiratory: denies: cough, shortness of breath, wheezing Cardiovascular: denies: chest pain, palpitations Endocrine: no symptoms reported Gastrointestinal: denies: abdominal pain, nausea, diarrhea Genitourinary: denies: urgency, dysuria Musculoskeletal: as per HPI, arthralgia. denies: back pain, joint swelling Skin: denies: rash, lesions Neurological: denies: headache, weakness, paresthesias Psychiatric: denies: anxiety, depression Hematological/Lymphatic: denies: easy bleeding, easy bruising ED Past Medical Hx - Past Medical History Hx Congestive Heart Failure: No Hx Diabetes: Yes Hx Asthma: No Hx COPD: No Hx HIV: No - Social History Smoking Status: Never Smoker - Medications Home Medications: Home Medications Medication Instructions Recorded Confirmed Last Taken Type Albuterol Mdi (or & Nicu Only) 2 puff IH QID PRN #1 inhalation 02/01/17 08/28/20 Unknown Rx [ProAir HFA Inhaler] Losartan [Cozaar] 100 mg PO QDAY #30 tablet 02/01/17 08/28/20 08/27/20 Rx Tiotropium [place] [Spiriva 4 gm IH DAILY #1 mist.inhal 02/01/17 08/28/20 Unknown Rx Respimat] metFORMIN XR [Glucophage XR] 500 mg PO BIDDIAB #60 tablet 02/01/17 08/28/20 08/27/20 Rx Furosemide [Lasix TAB] 40 mg PO QDAY #30 tablet 02/02/17 08/28/20 08/27/20 Rx glipiZIDE [Glucotrol] 5 mg PO BIDDIAB #60 tablet 02/02/17 08/28/20 08/27/20 Rx Aspirin EC [Halfprin EC] 81 mg PO QDAY 08/29/20 08/29/20 Unknown History Ketorolac [Toradol] 10 mg PO Q8H PRN #14 tablet 08/29/20 Unknown Rx Prednisone [predniSONE 10 mg 10 mg PO .TAPER #1 tab.ds.pk 08/29/20 Unknown Rx (6-Day Pack, 21 Tabs)] amLODIPine 10 mg PO QDAY 08/29/20 08/29/20 Unknown History lisinopriL [Zestril TAB] 20 mg PO QDAY 08/29/20 08/29/20 Unknown History Acetaminophen/Codeine [Tylenol 1 - 2 tab PO Q6H PRN #12 tab 03/09/21 Unknown Rx /Codeine # 3 tab] Clindamycin [Clindamycin CAP] 300 mg PO Q8HR #60 capsule 03/09/21 Unknown Rx Ibuprofen [Motrin] 800 mg PO Q8HR PRN #30 tablet 03/09/21 Unknown Rx Acetaminophen with Codeine 1 each PO Q6HR #12 12/28/21 Unknown Rx [Acetaminophen-Codeine #4 TAB] Colchicine [Colcrys] 0.6 mg PO DAILY #6 tablet 12/28/21 Unknown Rx ED Physical Exam - General Limitations: Physical Limitation General appearance: alert, in no apparent distress - Head Head exam: Present: atraumatic, normocephalic - Eye Eye exam: Present: normal appearance - ENT ENT exam: Present: normal exam, mucous membranes moist - Neck Neck exam: Present: normal inspection. Absent: tenderness, meningismus - Respiratory Respiratory exam: Present: normal lung sounds bilaterally. Absent: respiratory distress - Cardiovascular Cardiovascular Exam: Present: regular rate, normal rhythm. Absent: systolic murmur, diastolic murmur, rubs, gallop - GI/Abdominal GI/Abdominal exam: Present: soft, normal bowel sounds - Rectal Rectal exam: Present: deferred - Extremities Exam Extremities exam: Present: normal inspection, full ROM, tenderness (Tenderness palpation of the dorsum of the left foot. Normal DP and PT pulses. No erythema, ecchymosis, wounds. No pitting edema. No posterior calf tenderness, palpable cords.), normal capillary refill. Absent: calf tenderness - Back Exam Back exam: Present: normal inspection - Neurological Exam Neurological exam: Present: alert, oriented X3 - Psychiatric Psychiatric exam: Present: normal affect, normal mood - Skin Skin exam: Present: warm, dry, intact, normal color. Absent: rash ED Course Vital Signs 12/28/21 10:16 Temperature 98.5 F Pulse Rate 83 Respiratory 18 Rate Blood Pressure 144/89 O2 Sat by Pulse 93 Oximetry ED Medical Decision Making - Radiology Data Radiology results: report reviewed, image reviewed X-ray as read by radiology is unremarkable other than some mild degenerative change of the first MTP joint - Medical Decision Making Patient nontoxic no acute distress. Negative Homans' sign low risk by Wells criteria for DVT making this unlikely. There was tenderness to the dorsum of the foot with some mild warmth no signs of induration or erythema making a septic joint or cellulitis unlikely. Patient normal DP and PT pulses making ischemic leg unlikely. I suspect the patient may have acute gouty arthritis we will treat him with anti-inflammatories, colchicine and pain medication recommend he follow-up with his primary care doctor return to the ER with any change or worsening symptoms. He verbalized understand the diagnosis, treatment plan and follow-up instructions and all his questions were answered. - Differential Diagnosis Strain, contusion, gout Critical care attestation.: If time is entered above; I have spent that time in minutes in the direct care of this critically ill patient, excluding procedure time. ED Disposition Clinical Impression: Acute gouty arthritis Disposition: HOME / SELF CARE / HOMELESS Is pt being admited?: No Condition: Stable Instructions: Low-Purine Eating Plan Prescriptions: Acetaminophen with Codeine [Acetaminophen-Codeine #4 TAB] 1 each PO Q6HR #12 Colchicine [Colcrys] 0.6 mg PO DAILY #6 tablet Referrals: PRIMARY CARE, [Primary Care Provider] - 3-5 Days Forms: Work/School Release Form(ED) Time of Disposition: 11:02
== END 2021-12-28 11:31 | disposition home or self-care (01) ==
LOC: ED 09:15
DX: M10.9 Gout, unspecified (principal); E11.9 Type 2 diabetes mellitus without complications
CPT/HCPCS: 73620; 82962; 96372; 99283; J1885

== ENCOUNTER 2022-02-25 07:11 | Emergency (ER) | payer SELFPAY ==
[2022-02-25] MEDS ORDERED: dexAMETHasone 20 MG/5 ML VIAL IM ONE (11:11)
[2022-02-25] MEDS ORDERED: KETOROLAC 30 MG/1 ML INJ IM ONE (11:11)
--- NOTE | 2022-02-25 11:41 | Emergency Department Report ---
ED Extremity Problem HPI - General Chief complaint: Extremity Injury, Lower Stated complaint: MUSCLE PAIN Source: patient Mode of arrival: Ambulatory Limitations: No Limitations - History of Present Illness Initial comments: 51-year-old male presents to the ED complaining left femur muscle tightness X 2 days. 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 He states that pain is a current 7 out of 10. Patient denies any injury. Patient states that he taking some Aleve [id number] with mild relief x1 day ago. She has no obvious deformity or no distracting injury. Patient patient described pain as muscle tightness. Patient is alert and oriented x3. No acute distress noted. No ill appearance noted MD Complaint: extremity pain Onset/Timin -: days(s) Location: left, lower extremity History of Same: Yes Severity scale (0 -10): 7 Improves with: nothing Associated Symptoms: denies other symptoms - Related Data Home Medications Medication Instructions Recorded Confirmed Last Taken Aspirin EC [Halfprin EC] 81 mg PO QDAY 08/29/20 08/29/20 Unknown amLODIPine 10 mg PO QDAY 08/29/20 08/29/20 Unknown lisinopriL [Zestril TAB] 20 mg PO QDAY 08/29/20 08/29/20 Unknown Previous Rx's Medication Instructions Recorded Last Taken Type Albuterol Mdi (or & Nicu Only) 2 puff IH QID PRN #1 inhalation 02/01/17 Unknown Rx [ProAir HFA Inhaler] Losartan [Cozaar] 100 mg PO QDAY #30 tablet 02/01/17 08/27/20 Rx Tiotropium [place] [Spiriva 4 gm IH DAILY #1 mist.inhal 02/01/17 Unknown Rx Respimat] metFORMIN XR [Glucophage XR] 500 mg PO BIDDIAB #60 tablet 02/01/17 08/27/20 Rx Furosemide [Lasix TAB] 40 mg PO QDAY #30 tablet 02/02/17 08/27/20 Rx glipiZIDE [Glucotrol] 5 mg PO BIDDIAB #60 tablet 02/02/17 08/27/20 Rx Ketorolac [Toradol] 10 mg PO Q8H PRN #14 tablet 08/29/20 Unknown Rx Prednisone [predniSONE 10 mg 10 mg PO .TAPER #1 tab.ds.pk 08/29/20 Unknown Rx (6-Day Pack, 21 Tabs)] Acetaminophen/Codeine [Tylenol 1 - 2 tab PO Q6H PRN #12 tab 03/09/21 Unknown Rx /Codeine # 3 tab] Clindamycin [Clindamycin CAP] 300 mg PO Q8HR #60 capsule 03/09/21 Unknown Rx Ibuprofen [Motrin] 800 mg PO Q8HR PRN #30 tablet 03/09/21 Unknown Rx Acetaminophen with Codeine 1 each PO Q6HR #12 12/28/21 Unknown Rx [Acetaminophen-Codeine #4 TAB] Colchicine [Colcrys] 0.6 mg PO DAILY #6 tablet 12/28/21 Unknown Rx Cyclobenzaprine [Flexeril] 10 mg PO TID PRN 15 Days #30 tab 02/25/22 Unknown Rx Naproxen [Naprosyn] 500 mg PO BID 15 Days #30 tablet 02/25/22 Unknown Rx predniSONE [Deltasone] 50 mg PO QDAY 5 Days #5 tab 02/25/22 Unknown Rx Allergies Allergy/AdvReac Type Severity Reaction Status Date / Time No Known Allergies Allergy Verified 02/25/22 07:27 ED Review of Systems ROS: Stated complaint: MUSCLE PAIN Other details as noted in HPI Constitutional: denies: chills, fever Eyes: denies: eye pain, eye discharge, vision change ENT: denies: ear pain, throat pain Respiratory: denies: cough, shortness of breath, wheezing Cardiovascular: denies: chest pain, palpitations Endocrine: no symptoms reported Gastrointestinal: denies: abdominal pain, nausea, diarrhea Genitourinary: denies: urgency, dysuria Musculoskeletal: denies: back pain, joint swelling, arthralgia Skin: denies: rash, lesions Neurological: denies: headache, weakness, paresthesias Psychiatric: denies: anxiety, depression Hematological/Lymphatic: denies: easy bleeding, easy bruising ED Past Medical Hx - Past Medical History Hx Hypertension: Yes Hx Congestive Heart Failure: No Hx Diabetes: Yes Hx Asthma: No Hx COPD: No Hx HIV: No - Social History Smoking Status: Never Smoker - Medications Home Medications: Home Medications Medication Instructions Recorded Confirmed Last Taken Type Albuterol Mdi (or & Nicu Only) 2 puff IH QID PRN #1 inhalation 02/01/17 08/28/20 Unknown Rx [ProAir HFA Inhaler] Losartan [Cozaar] 100 mg PO QDAY #30 tablet 02/01/17 08/28/20 08/27/20 Rx Tiotropium [place] [Spiriva 4 gm IH DAILY #1 mist.inhal 02/01/17 08/28/20 Unknown Rx Respimat] metFORMIN XR [Glucophage XR] 500 mg PO BIDDIAB #60 tablet 02/01/17 08/28/20 08/27/20 Rx Furosemide [Lasix TAB] 40 mg PO QDAY #30 tablet 02/02/17 08/28/20 08/27/20 Rx glipiZIDE [Glucotrol] 5 mg PO BIDDIAB #60 tablet 02/02/17 08/28/20 08/27/20 Rx Aspirin EC [Halfprin EC] 81 mg PO QDAY 08/29/20 08/29/20 Unknown History Ketorolac [Toradol] 10 mg PO Q8H PRN #14 tablet 08/29/20 Unknown Rx Prednisone [predniSONE 10 mg 10 mg PO .TAPER #1 tab.ds.pk 08/29/20 Unknown Rx (6-Day Pack, 21 Tabs)] amLODIPine 10 mg PO QDAY 08/29/20 08/29/20 Unknown History lisinopriL [Zestril TAB] 20 mg PO QDAY 08/29/20 08/29/20 Unknown History Acetaminophen/Codeine [Tylenol 1 - 2 tab PO Q6H PRN #12 tab 03/09/21 Unknown Rx /Codeine # 3 tab] Clindamycin [Clindamycin CAP] 300 mg PO Q8HR #60 capsule 03/09/21 Unknown Rx Ibuprofen [Motrin] 800 mg PO Q8HR PRN #30 tablet 03/09/21 Unknown Rx Acetaminophen with Codeine 1 each PO Q6HR #12 12/28/21 Unknown Rx [Acetaminophen-Codeine #4 TAB] Colchicine [Colcrys] 0.6 mg PO DAILY #6 tablet 12/28/21 Unknown Rx Cyclobenzaprine [Flexeril] 10 mg PO TID PRN 15 Days #30 tab 02/25/22 Unknown Rx Naproxen [Naprosyn] 500 mg PO BID 15 Days #30 tablet 02/25/22 Unknown Rx predniSONE [Deltasone] 50 mg PO QDAY 5 Days #5 tab 02/25/22 Unknown Rx ED Physical Exam - General Limitations: No Limitations General appearance: alert, in no apparent distress - Head Head exam: Present: atraumatic, normocephalic - Eye Eye exam: Present: normal appearance - ENT ENT exam: Present: mucous membranes moist - Neck Neck exam: Present: normal inspection - Respiratory Respiratory exam: Present: normal lung sounds bilaterally. Absent: respiratory distress - Cardiovascular Cardiovascular Exam: Present: regular rate, normal rhythm. Absent: systolic murmur, diastolic murmur, rubs, gallop - GI/Abdominal GI/Abdominal exam: Present: soft, normal bowel sounds - Rectal Rectal exam: Present: deferred - Extremities Exam Extremities exam: Present: normal inspection - Back Exam Back exam: Present: normal inspection - Neurological Exam Neurological exam: Present: alert, oriented X3 - Psychiatric Psychiatric exam: Present: normal affect, normal mood - Skin Skin exam: Present: warm, dry, intact, normal color. Absent: rash ED Course Vital Signs 02/25/22 07:20 Temperature 98.5 F Pulse Rate 86 Respiratory 18 Rate Blood Pressure 167/98 Blood Pressure 167/98 [Left] O2 Sat by Pulse 97 Oximetry ED Medical Decision Making - Medical Decision Making 51-year-old male presents to the ED complaining left femur muscle tightness X 2 days. 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 He states that pain is a current 7 out of 10. Patient denies any injury. Patient states that he taking some Aleve [id number] with mild relief x1 day ago. She has no obvious deformity or no distracting injury. Patient patient described pain as muscle tightness. Patient is alert and oriented x3. No acute distress noted. No ill appearance noted. Physical examination is unremarkable. Patient left femur no pertinent forms and sent for an x-ray examination. Toradol 30 mg given IM. Decadron 10 mg given IM. 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 Rechecked the patient is resting quietly quietly and comfortable and feeling better. I discussed the results of diagnostic study, my clinical impression and the plan for further treatment with the patient. Patient agrees with plan and discharge at this present time. All question addressed. I have given the patient instruction regarding a diagnosis ,expectation ,follow- up and return precaution. I explained to the patient that emergent condition may arise and to return to the ED for new worsen and any new persisting condition. I have explained the importance of following up with the primary care physician or referral physician listed below has instructed. The patient verbalized understanding of discharge instruction. Critical care attestation.: If time is entered above; I have spent that time in minutes in the direct care of this critically ill patient, excluding procedure time. ED Disposition Clinical Impression: Muscle spasm of left lower extremity Disposition: 30 STILL A PATIENT Is pt being admited?: No Condition: Stable Instructions: Muscle Cramps and Spasms, Leg Cramps Additional Instructions: Take medication as prescribed Return to the ED for any worsening symptom Prescriptions: predniSONE [Deltasone] 50 mg PO QDAY 5 Days #5 tab Cyclobenzaprine [Flexeril] 10 mg PO TID PRN 15 Days #30 tab PRN Reason: Muscle Spasm Naproxen [Naprosyn] 500 mg PO BID 15 Days #30 tablet Referrals: CARYN WALLACE MD [Staff Physician] - 3-5 Days Forms: Work/School Release Form(ED) Time of Disposition: 11:48
[2022-02-25 13:28] VITALS: BP 165/92
== END 2022-02-25 13:23 | disposition still patient (30) ==
LOC: ED 07:11
DX: M62.838 Other muscle spasm (principal); I10 Essential (primary) hypertension; E11.9 Type 2 diabetes mellitus without complications; Z79.899 Other long term (current) drug therapy
CPT/HCPCS: 96372; 99282; J1100; J1885